=== PATIENT | male | born 1995 | race African-American/Black ===

== ENCOUNTER 2016-06-04 23:26 | Emergency (ER) | payer OTHER ==
[2016-06-05] MEDS ORDERED: NORCO, ANEXSIA 5/325MG TABLET (HYDROcodone/ACETAMINOPHEN) As Ordered ONE (01:03)
[2016-06-05] MEDS ORDERED: BACTRIM 160MG/800MG DS TAB As Ordered ONE (01:04)
--- NOTE | 2016-06-05 01:12 | EDDOCDS ---
Nurse's Notes [facility] Name: Yancy Ferrer Age: 20 yrs Sex: Male : 1995 Arrival Date: 06/04/2016 Time: 23:26 Bed Triage 2 Private MD: Troy Howard Diagnosis: Cutaneous abscess of buttock-left medial Presentation: 06/04 23:42 Presenting complaint: Patient states: Cyst in cleft of left buttocks, has been present lf1 for about one month. Pt. reports pain is 8/10. Presenting complaint: Patient states: Reports he has had this in the past on his right and has required drainage. Adult Sepsis Screening: The patient does not have new or worsening altered mentation. Patient's respiratory rate is less than 22. Systolic blood pressure is greater than 100. Patient has a qSOFA score of 0- Negative Sepsis Screen. Suicide/Homicide risk assessment- the patient denies having any suicidal and/or homicidal ideations and does not present with any other emotional, behavioral or mental health complaints. 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 Transition of care: patient was not received from another setting of care. 23:42 Acuity: RANI Level 3 lf1 23:42 Method Of Arrival: Walkin/Carried/Asstd lf1 Triage Assessment: 23:44 General: Appears in no apparent distress, comfortable, Behavior is cooperative. Pain: lf1 Location: gluteal cleft Pain currently is 8 out of 10 on a pain scale. Quality of pain is described as pressure. HIV screening NA for this visit Offered previously. Neurological: Level of Consciousness is awake, alert, Oriented to person, place, time. Cardiovascular: No deficits noted. Respiratory: Respiratory effort is even, unlabored. GI: Denies nausea, vomiting. : No deficits noted. Derm: Skin is normal, Parent/caregiver reports the patient having cyst to buttocks - unable to visualize in triage area. Injury Description: No known injury. Historical: - Allergies: No known drug Allergies; - Home Meds: 1. Claritin 10 mg Oral TbER 1 tab once daily - PMHx: Seasonal Allergies; - PSHx: does not remember what surgeries he has had; - Social history: Smoking status: Patient uses tobacco products, current every day smoker. No barriers to communication noted, The patient speaks fluent Bangladeshi, Speaks appropriately for age, Preferred Language: Bangladeshi. - Family history: Not pertinent. - : The pt / caregiver states he / she is not on anticoagulants. Home medication list is obtained from the patient. - Exposure Risk Screening:: None identified. Screenin/02 01:05 Screening information is obtained from the patient. Fall risk: No risks identified. lf1 Assistance ADL's: requires no assistance with activities of daily living. Abuse/DV Screen: The patient / caregiver reports he/she is: not in a situation that causes fear, pain or injury. Nutritional screening: No deficits noted. Advance Directives: Currently, there is no health care proxy. home support is adequate. Assessment: 01:05 Adult Sepsis Screening: The patient does not have new or worsening altered mentation. lf1 Patient's respiratory rate is less than 22. Systolic blood pressure is greater than 100. Patient has a qSOFA score of 0- Negative Sepsis Screen. General: Appears in no apparent distress, comfortable, Behavior is cooperative. Pain: Location: gluteal cleft Pain currently is 8 out of 10 on a pain scale. Neurological: Level of Consciousness is awake, alert, Oriented to person, place, time. EENT: No deficits noted. Cardiovascular: Chest pain is denied. Respiratory: Respiratory effort is even, unlabored. GI: Denies nausea, vomiting. Derm: Def to provider. Vital Signs: 06/04 23:29 BP 137 / 63; Pulse 108; Resp 18 S; Temp 99.5(O); Pulse Ox 100% on R/A; Weight 56.7 kg gr2 (R); Height 5 ft. 4 in. (162.56 cm) (R); Pain 5/10; 06/05 01:05 BP 126 / 88; Pulse 89; Resp 18; Temp 98.9(O); Pulse Ox 98% on R/A; Pain 8/10; lf1 06/04 23:29 Body Mass Index 21.46 (56.70 kg, 162.56 cm) gr2 Vitals: 06/04 23:29 Log In Time: June 04, 2016 at 23:29. gr2 ED Course: 23:28 Patient visited by Mao Reynoso. gr2 23:28 Patient moved to Waiting gr2 23:29 Troy Howard is Private Physician. gr2 23:30 Patient visited by Mao Reynoso. gr2 23:30 Patient moved to Pre RCE gr2 23:44 Triage Initiated lf1 0202 00:27 Patient moved to Triage 2 lf1 00:42 Lee Andrea PA is PHCP. mo1 00:42 Boris Stevens DO is Attending Physician. mo1 00:42 Patient visited by Lee Andrea PA. mo1 00:42 Troy Howard is Referral Physician. mo1 00:51 [facility] Payment Agreement was scanned into [employer] and attached to record. pm4 01:05 The patient / caregiver is instructed regarding the plan of care and ED course. lf1 01:05 No IV's were initiated during this patient's visit. No procedures done that require lf1 assistance. Administered Medications: 01:11 Drug: Trimethoprim-Sulfamethoxazole 1 tabs [sulfamethoxazole 800 mg-trimethoprim 160 mg lf1 tablet (1 tabs)] Route: PO; 01:11 Follow up: Response: Pt left department before re-evaluation is appropriate lf1 01:11 Drug: HYDROcodone-acetaminophen 1 tabs [hydrocodone 5 mg-acetaminophen 325 mg tablet (1 lf1 tabs)] Route: PO; 01:11 Follow up: Response: Confirmed pt not driving.; Pt left department before re-evaluation lf1 is appropriate Order Results: There are currently no results for this order. Outcome: 00:43 Discharge ordered by Provider. mo1 01:05 Discharge Assessment: Patient awake, alert and oriented x 3. No cognitive and/or lf1 functional deficits noted. Patient verbalized understanding of disposition instructions. Patient awake and alert. Oriented to person, place and time. Patient verbalized understanding of disposition instructions. patient administered narcotics - yes. Pt provided with safe discharge. The following High Risk Discharge criteria are identified: None. Discharged to home ambulatory. Condition: unchanged. Discharge instructions given to patient, Instructed on discharge instructions, follow up and referral plans. medication usage, Demonstrated understanding of instructions, medications, Pt was receptive of discharge instructions/ teaching. Prescriptions given X 2. No special radiology studies were completed. Property :Personal belongings accompany Pt. 01:11 Patient left the ED. lf1 Signatures: Danay Cesar RN RN lf1 Mao Reynoso gr2 Lee Andrea PA PA mo1 Crescencio Johnson, Reg Reg pm4 MTDD
--- NOTE | 2016-06-05 01:12 | EDDOCDS ---
Physician Documentation [facility] Name: Yancy Ferrer Age: 20 yrs Sex: Male : 1995 Arrival Date: 06/04/2016 Time: 23:26 Bed Triage 2 Private MD: Troy Howard Disposition: 06/05/16 00:43 Discharged to Home/Self Care. Impression: Cutaneous abscess of buttock - left medial . - Condition is Stable. - Discharge Instructions: Abscess, Incision and Drainage. - Prescriptions for [place] 5- 325 mg Oral Tablet - take 1 tablet by ORAL route every 6 hours As needed MDD: 4 tabs; 10 tablet. Bactrim DS 800- 160 mg Oral Tablet - take 1 tablet by ORAL route every 12 hours for 10 days; 20 tablet. - Medication Reconciliation, Local Pharmacy Hours form. - Follow up: Troy Howard; When: Call to arrange an appointment; Reason: Recheck today's complaints, Continuance of care. - Problem is an ongoing problem. - Symptoms are unchanged. Historical: - Allergies: No known drug Allergies; - Home Meds: 1. Claritin 10 mg Oral TbER 1 tab once daily - PMHx: Seasonal Allergies; - PSHx: does not remember what surgeries he has had; - Social history: Smoking status: Patient uses tobacco products, current every day smoker. No barriers to communication noted, The patient speaks fluent Greek, Speaks appropriately for age, Preferred Language: Greek. - Family history: Not pertinent. - : The pt / caregiver states he / she is not on anticoagulants. Home medication list is obtained from the patient. - Exposure Risk Screening:: None identified. Vital Signs: 06/04 23:29 BP 137 / 63; Pulse 108; Resp 18 S; Temp 99.5(O); Pulse Ox 100% on R/A; Weight 56.7 kg / gr2 125 lbs (R); Height 5 ft. 4 in. (162.56 cm) (R); Pain 5/10; 06/05 01:05 BP 126 / 88; Pulse 89; Resp 18; Temp 98.9(O); Pulse Ox 98% on R/A; Pain 8/10; lf1 06/04 23:29 Body Mass Index 21.46 (56.70 kg, 162.56 cm) gr2 MDM: 00:42 Trimethoprim-Sulfamethoxazole 160 mg-800 mg (DS) 1 tabs PO once ordered. mo1 00:42 HYDROcodone-acetaminophen 5 mg-325 mg 1 tabs PO once ordered. mo1 00:51 Financial registration complete. pm4 00:51 [facility] Payment Agreement was scanned into [employer] and attached to record. pm4 Administered Medications: 01:11 Drug: Trimethoprim-Sulfamethoxazole 1 tabs [sulfamethoxazole 800 mg-trimethoprim 160 mg lf1 tablet (1 tabs)] Route: PO; 01:11 Follow up: Response: Pt left department before re-evaluation is appropriate lf1 01:11 Drug: HYDROcodone-acetaminophen 1 tabs [hydrocodone 5 mg-acetaminophen 325 mg tablet (1 lf1 tabs)] Route: PO; 01:11 Follow up: Response: Confirmed pt not driving.; Pt left department before re-evaluation lf1 is appropriate Signatures: Danay Cesar RN RN lf1 Lee Andrea PA PA mo1 Crescencio Johnson, Reg Reg pm4 The chart was reviewed and I authenticate all verbal orders and agree with the evaluation and treatment provided.Attachments: 00:51 [facility] Payment Agreement pm4 MTDD
--- NOTE | 2016-06-07 02:12 | EDDOCDS ---
Physician Documentation [facility] Name: Yancy Ferrer Age: 20 yrs Sex: Male : 1995 Arrival Date: 06/04/2016 Time: 23:26 Bed Triage 2 Private MD: Troy Howard Disposition: 06/05/16 00:43 Discharged to Home/Self Care. Impression: Cutaneous abscess of buttock - left medial . - Condition is Stable. - Discharge Instructions: Abscess, Incision and Drainage. - Prescriptions for [place] 5- 325 mg Oral Tablet - take 1 tablet by ORAL route every 6 hours As needed MDD: 4 tabs; 10 tablet. Bactrim DS 800- 160 mg Oral Tablet - take 1 tablet by ORAL route every 12 hours for 10 days; 20 tablet. - Medication Reconciliation, Local Pharmacy Hours form. - Follow up: Troy Howard; When: Call to arrange an appointment; Reason: Recheck today's complaints, Continuance of care. - Problem is an ongoing problem. - Symptoms are unchanged. Historical: - Allergies: No known drug Allergies; - Home Meds: 1. Claritin 10 mg Oral TbER 1 tab once daily - PMHx: Seasonal Allergies; - PSHx: does not remember what surgeries he has had; - Social history: Smoking status: Patient uses tobacco products, current every day smoker. No barriers to communication noted, The patient speaks fluent Samoan, Speaks appropriately for age, Preferred Language: Samoan. - Family history: Not pertinent. - : The pt / caregiver states he / she is not on anticoagulants. Home medication list is obtained from the patient. - Exposure Risk Screening:: None identified. Vital Signs: 06/04 23:29 BP 137 / 63; Pulse 108; Resp 18 S; Temp 99.5(O); Pulse Ox 100% on R/A; Weight 56.7 kg / gr2 125 lbs (R); Height 5 ft. 4 in. (162.56 cm) (R); Pain 5/10; 06/05 01:05 BP 126 / 88; Pulse 89; Resp 18; Temp 98.9(O); Pulse Ox 98% on R/A; Pain 8/10; lf1 06/04 23:29 Body Mass Index 21.46 (56.70 kg, 162.56 cm) gr2 MDM: 00:42 Trimethoprim-Sulfamethoxazole 160 mg-800 mg (DS) 1 tabs PO once ordered. mo1 00:42 HYDROcodone-acetaminophen 5 mg-325 mg 1 tabs PO once ordered. mo1 00:51 Financial registration complete. pm4 00:51 [facility] Payment Agreement was scanned into [employer] and attached to record. pm4 12:41 T-Sheet-- Draft Copy was scanned into [employer] and attached to record. gb Administered Medications: 01:11 Drug: Trimethoprim-Sulfamethoxazole 1 tabs [sulfamethoxazole 800 mg-trimethoprim 160 mg lf1 tablet (1 tabs)] Route: PO; 01:11 Follow up: Response: Pt left department before re-evaluation is appropriate lf1 01:11 Drug: HYDROcodone-acetaminophen 1 tabs [hydrocodone 5 mg-acetaminophen 325 mg tablet (1 lf1 tabs)] Route: PO; 01:11 Follow up: Response: Confirmed pt not driving.; Pt left department before re-evaluation lf1 is appropriate Signatures: Elsy Retana, Reg Reg gb Danay Cesar,RN RN lf1 Lee Andrea PA PA mo1 Crescencio Johnson, Reg Reg pm4 The chart was reviewed and I authenticate all verbal orders and agree with the evaluation and treatment provided.Attachments: 00:51 [facility] Payment Agreement pm4 12:41 T-Sheet-- Draft Copy gb Chart Complete MTDD
--- NOTE | 2016-06-07 02:12 | EDDOCDS ---
Physician Documentation [facility] Name: Yancy Ferrer Age: 20 yrs Sex: Male : 1995 Arrival Date: 06/04/2016 Time: 23:26 Bed Triage 2 Private MD: Troy Howard Disposition: 06/05/16 00:43 Discharged to Home/Self Care. Impression: Cutaneous abscess of buttock - left medial . - Condition is Stable. - Discharge Instructions: Abscess, Incision and Drainage. - Prescriptions for [place] 5- 325 mg Oral Tablet - take 1 tablet by ORAL route every 6 hours As needed MDD: 4 tabs; 10 tablet. Bactrim DS 800- 160 mg Oral Tablet - take 1 tablet by ORAL route every 12 hours for 10 days; 20 tablet. - Medication Reconciliation, Local Pharmacy Hours form. - Follow up: Troy Howard; When: Call to arrange an appointment; Reason: Recheck today's complaints, Continuance of care. - Problem is an ongoing problem. - Symptoms are unchanged. Historical: - Allergies: No known drug Allergies; - Home Meds: 1. Claritin 10 mg Oral TbER 1 tab once daily - PMHx: Seasonal Allergies; - PSHx: does not remember what surgeries he has had; - Social history: Smoking status: Patient uses tobacco products, current every day smoker. No barriers to communication noted, The patient speaks fluent Mexican, Speaks appropriately for age, Preferred Language: Mexican. - Family history: Not pertinent. - : The pt / caregiver states he / she is not on anticoagulants. Home medication list is obtained from the patient. - Exposure Risk Screening:: None identified. Vital Signs: 06/04 23:29 BP 137 / 63; Pulse 108; Resp 18 S; Temp 99.5(O); Pulse Ox 100% on R/A; Weight 56.7 kg / gr2 125 lbs (R); Height 5 ft. 4 in. (162.56 cm) (R); Pain 5/10; 06/05 01:05 BP 126 / 88; Pulse 89; Resp 18; Temp 98.9(O); Pulse Ox 98% on R/A; Pain 8/10; lf1 06/04 23:29 Body Mass Index 21.46 (56.70 kg, 162.56 cm) gr2 MDM: 00:42 Trimethoprim-Sulfamethoxazole 160 mg-800 mg (DS) 1 tabs PO once ordered. mo1 00:42 HYDROcodone-acetaminophen 5 mg-325 mg 1 tabs PO once ordered. mo1 00:51 Financial registration complete. pm4 00:51 [facility] Payment Agreement was scanned into [employer] and attached to record. pm4 12:41 T-Sheet-- Draft Copy was scanned into [employer] and attached to record. gb Administered Medications: 01:11 Drug: Trimethoprim-Sulfamethoxazole 1 tabs [sulfamethoxazole 800 mg-trimethoprim 160 mg lf1 tablet (1 tabs)] Route: PO; 01:11 Follow up: Response: Pt left department before re-evaluation is appropriate lf1 01:11 Drug: HYDROcodone-acetaminophen 1 tabs [hydrocodone 5 mg-acetaminophen 325 mg tablet (1 lf1 tabs)] Route: PO; 01:11 Follow up: Response: Confirmed pt not driving.; Pt left department before re-evaluation lf1 is appropriate Signatures: Elsy Retana, Reg Reg gb Danay Cesar,RN RN lf1 Lee Andrea PA PA mo1 Crescencio Johnson, Reg Reg pm4 The chart was reviewed and I authenticate all verbal orders and agree with the evaluation and treatment provided.Attachments: 00:51 [facility] Payment Agreement pm4 12:41 T-Sheet-- Draft Copy gb Chart Complete MTDD
--- NOTE | 2016-06-07 02:12 | EDDOCDS ---
Nurse's Notes [facility] Name: Yancy Ferrer Age: 20 yrs Sex: Male : 1995 Arrival Date: 06/04/2016 Time: 23:26 Bed Triage 2 Private MD: Troy Howard Diagnosis: Cutaneous abscess of buttock-left medial Presentation: 06/04 23:42 Presenting complaint: Patient states: Cyst in cleft of left buttocks, has been present lf1 for about one month. Pt. reports pain is 8/10. Presenting complaint: Patient states: Reports he has had this in the past on his right and has required drainage. Adult Sepsis Screening: The patient does not have new or worsening altered mentation. Patient's respiratory rate is less than 22. Systolic blood pressure is greater than 100. Patient has a qSOFA score of 0- Negative Sepsis Screen. Suicide/Homicide risk assessment- the patient denies having any suicidal and/or homicidal ideations and does not present with any other emotional, behavioral or mental health complaints. Status: Patient is not a customer service teller or dependent. Transition of care: patient was not received from another setting of care. 23:42 Acuity: RANI Level 3 lf1 23:42 Method Of Arrival: Walkin/Carried/Asstd lf1 Triage Assessment: 23:44 General: Appears in no apparent distress, comfortable, Behavior is cooperative. Pain: lf1 Location: gluteal cleft Pain currently is 8 out of 10 on a pain scale. Quality of pain is described as pressure. HIV screening NA for this visit Offered previously. Neurological: Level of Consciousness is awake, alert, Oriented to person, place, time. Cardiovascular: No deficits noted. Respiratory: Respiratory effort is even, unlabored. GI: Denies nausea, vomiting. : No deficits noted. Derm: Skin is normal, Parent/caregiver reports the patient having cyst to buttocks - unable to visualize in triage area. Injury Description: No known injury. Historical: - Allergies: No known drug Allergies; - Home Meds: 1. Claritin 10 mg Oral TbER 1 tab once daily - PMHx: Seasonal Allergies; - PSHx: does not remember what surgeries he has had; - Social history: Smoking status: Patient uses tobacco products, current every day smoker. No barriers to communication noted, The patient speaks fluent Wallisian, Speaks appropriately for age, Preferred Language: Wallisian. - Family history: Not pertinent. - : The pt / caregiver states he / she is not on anticoagulants. Home medication list is obtained from the patient. - Exposure Risk Screening:: None identified. Screenin/02 01:05 Screening information is obtained from the patient. Fall risk: No risks identified. lf1 Assistance ADL's: requires no assistance with activities of daily living. Abuse/DV Screen: The patient / caregiver reports he/she is: not in a situation that causes fear, pain or injury. Nutritional screening: No deficits noted. Advance Directives: Currently, there is no health care proxy. home support is adequate. Assessment: 01:05 Adult Sepsis Screening: The patient does not have new or worsening altered mentation. lf1 Patient's respiratory rate is less than 22. Systolic blood pressure is greater than 100. Patient has a qSOFA score of 0- Negative Sepsis Screen. General: Appears in no apparent distress, comfortable, Behavior is cooperative. Pain: Location: gluteal cleft Pain currently is 8 out of 10 on a pain scale. Neurological: Level of Consciousness is awake, alert, Oriented to person, place, time. EENT: No deficits noted. Cardiovascular: Chest pain is denied. Respiratory: Respiratory effort is even, unlabored. GI: Denies nausea, vomiting. Derm: Def to provider. Vital Signs: 06/04 23:29 BP 137 / 63; Pulse 108; Resp 18 S; Temp 99.5(O); Pulse Ox 100% on R/A; Weight 56.7 kg gr2 (R); Height 5 ft. 4 in. (162.56 cm) (R); Pain 5/10; 06/05 01:05 BP 126 / 88; Pulse 89; Resp 18; Temp 98.9(O); Pulse Ox 98% on R/A; Pain 8/10; lf1 06/04 23:29 Body Mass Index 21.46 (56.70 kg, 162.56 cm) gr2 Vitals: 06/04 23:29 Log In Time: June 04, 2016 at 23:29. gr2 ED Course: 23:28 Patient visited by Mao Reynoso. gr2 23:28 Patient moved to Waiting gr2 23:29 Troy Howard is Private Physician. gr2 23:30 Patient visited by Mao Reynoso. gr2 23:30 Patient moved to Pre RCE gr2 23:44 Triage Initiated lf1 02 00:27 Patient moved to Triage 2 lf1 00:42 Lee Andrea PA is PHCP. mo1 00:42 Boris Stevens DO is Attending Physician. mo1 00:42 Patient visited by Lee Andrea PA. mo1 00:42 Troy Howard is Referral Physician. mo1 00:51 [facility] [place] Payment Agreement was scanned into [email or web address] and attached to record. pm4 01:05 The patient / caregiver is instructed regarding the plan of care and ED course. lf1 01:05 No IV's were initiated during this patient's visit. No procedures done that require lf1 assistance. 12:41 T-Sheet-- Draft Copy was scanned into [email or web address] and attached to record. gb Administered Medications: 01:11 Drug: Trimethoprim-Sulfamethoxazole 1 tabs [sulfamethoxazole 800 mg-trimethoprim 160 mg lf1 tablet (1 tabs)] Route: PO; 01:11 Follow up: Response: Pt left department before re-evaluation is appropriate lf1 01:11 Drug: HYDROcodone-acetaminophen 1 tabs [hydrocodone 5 mg-acetaminophen 325 mg tablet (1 lf1 tabs)] Route: PO; 01:11 Follow up: Response: Confirmed pt not driving.; Pt left department before re-evaluation lf1 is appropriate Order Results: There are currently no results for this order. Outcome: 00:43 Discharge ordered by Provider. mo1 01:05 Discharge Assessment: Patient awake, alert and oriented x 3. No cognitive and/or lf1 functional deficits noted. Patient verbalized understanding of disposition instructions. Patient awake and alert. Oriented to person, place and time. Patient verbalized understanding of disposition instructions. patient administered narcotics - yes. Pt provided with safe discharge. The following High Risk Discharge criteria are identified: None. Discharged to home ambulatory. Condition: unchanged. Discharge instructions given to patient, Instructed on discharge instructions, follow up and referral plans. medication usage, Demonstrated understanding of instructions, medications, Pt was receptive of discharge instructions/ teaching. Prescriptions given X 2. No special radiology studies were completed. Property :Personal belongings accompany Pt. 01:11 Patient left the ED. lf1 Signatures: Elsy Retana Reg Reg gb Danay Cesar,RN RN lf1 Mao Reynoso gr2 Lee Andrea PA PA mo1 Crescencio Johnson, Reg Reg pm4 Chart Complete MTDD
== END 2016-06-05 01:11 | disposition home or self-care (01) ==
LOC: M ED 23:26
DX: L02.31 Cutaneous abscess of buttock (principal); J30.9 Allergic rhinitis, unspecified; F17.210 Nicotine dependence, cigarettes, uncomplicated; Z79.899 Other long term (current) drug therapy

== ENCOUNTER 2016-06-06 16:04 | Emergency (ER) | payer OTHER ==
[2016-06-06] MEDS ORDERED: LIDOCAINE 2% MDV 20 ML VIAL As Ordered ONE (16:35)
--- NOTE | 2016-06-06 17:09 | EDDOCDS ---
Nurse's Notes [facility] Name: Yancy Ferrer Age: 20 yrs Sex: Male : 1995 Arrival Date: 06/06/2016 Time: 16:04 Bed TR7 Private MD: Troy Howard Diagnosis: Cutaneous abscess, furuncle and carbuncle of buttock Presentation: 06/06 16:07 Presenting complaint: Patient states: that he has a cyst growing on his R buttock area. ms18 Pt reports that he was here approx 2 days ago and was told that it wasn't ready to be drained. Adult Sepsis Screening: The patient does not have new or worsening altered mentation. Patient's respiratory rate is less than 22. Systolic blood pressure is greater than 100. Patient has a qSOFA score of 0- Negative Sepsis Screen. Suicide/Homicide risk assessment- the patient denies having any suicidal and/or homicidal ideations and does not present with any other emotional, behavioral or mental health complaints. 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 Transition of care: patient was not received from another setting of care. 16:07 Acuity: RANI Level 4 ms18 16:07 Method Of Arrival: Walkin/Carried/Asstd ms18 Triage Assessment: 16:09 General: Appears in no apparent distress, uncomfortable, Behavior is appropriate for ms18 age, cooperative. Pain: Location: buttocks Pain currently is 10 out of 10 on a pain scale. HIV screening NA for this visit Offered previously. Neurological: No deficits noted. Respiratory: No deficits noted. Derm: Skin is pink, warm & dry. Historical: - Allergies: no known allergies; - Home Meds: 1. Claritin 10 mg Oral TbER 1 tab once daily - PMHx: Seasonal Allergies; - PSHx: none; - Social history: Smoking status: Patient uses tobacco products, current every day smoker. No barriers to communication noted, The patient speaks fluent Estonian. - Family history: Not pertinent. - : The pt / caregiver states he / she is not on anticoagulants. Home medication list is obtained from the patient. - Exposure Risk Screening:: None identified. Screenin:06 Screening information is obtained from the patient. Fall risk: No risks identified. ttb Assistance ADL's: requires no assistance with activities of daily living. Abuse/DV Screen: The patient / caregiver reports he/she is: not in a situation that causes fear, pain or injury. Nutritional screening: No deficits noted. Advance Directives: Currently, there is no health care proxy. home support is adequate. Assessment: 17:06 General: Appears in no apparent distress, well nourished, well groomed, Behavior is ttb appropriate for age, cooperative, pleasant. Neurological: Level of Consciousness is awake, alert. Respiratory: No deficits noted. Derm: Skin is normal, left buttock cyst. Vital Signs: 16:06 BP 123 / 66; Pulse 103; Resp 18; Temp 97.3(O); Pulse Ox 100% on R/A; Weight 56.7 kg ct3 (R); Height 5 ft. 4 in. (162.56 cm) (R); Pain 10/10; 16:06 Body Mass Index 21.46 (56.70 kg, 162.56 cm) ct3 Vitals: 16:06 Log In Time: June 06, 2016 at 16:03. ct3 ED Course: 15:50 Assist provider with I & D: of an abscess on buttock cyst Performed by Eduardo GARCIA Patient tolerated well. 16:05 Patient visited by Darlyn Chavez PCA. ct3 16:05 Patient moved to Waiting ct3 16:06 Troy Howard is Private Physician. ct3 16:07 Patient moved to Pre RCE ct3 16:09 Triage Initiated ms18 16:10 Patient moved to Triage 2 ms18 16:29 [facility] Steele [facility]. btw 16:29 Torito Tamayo MD is Attending Physician. btw 16:29 Patient visited by Eduardo Steele PA. btw 16:53 Troy Howard is Referral Physician. btw 17:04 Patient moved to TR7 jb5 17:06 The patient / caregiver is instructed regarding the plan of care and ED course. Patient ttb has correct armband on for positive identification. 17:06 No IV's were initiated during this patient's visit. ttb 17:08 [facility] Payment Agreement was scanned into [employer] and attached to record. jp5 17:08 Abscess Culture & GS - All Others Sent. ttb 17:08 Wound culture sent to lab. ttb Administered Medications: 16:35 Drug: Lidocaine 10 ml [lidocaine 20 mg/mL (2 %) injection solution (10 mL)] {Note: by ttb PA.} Route: Infiltration; Order Results: There are currently no results for this order. Outcome: 16:53 Discharge ordered by Provider. btw 17:08 Discharge Assessment: Patient awake, alert and oriented x 3. No cognitive and/or ttb functional deficits noted. Patient verbalized understanding of disposition instructions. Patient awake and alert. patient administered narcotics - no. 17:08 The following High Risk Discharge criteria are identified: None. Discharged to home ttb ambulatory. Condition: good Condition: stable Condition: improved. Discharge instructions given to patient, Instructed on discharge instructions, follow up and referral plans. medication usage, Use of warm compresses to the affected area, wound care, Demonstrated understanding of instructions, medications, wound care, warm compresses Pt was receptive of discharge instructions/ teaching. No special radiology studies were completed. Property :Personal belongings accompany Pt. 17:08 Patient left the ED. ttb Signatures: Hoa Burk, METAL COATER METAL COATER jb5 Eduardo Steele PA PA btw Darlyn Chavez, METAL COATER METAL COATER ct3 Liliana White, ESTRELLITA RN ttb Ananya Ferrer RN RN ms18 Brandon Warner jp5 MTDD
--- NOTE | 2016-06-06 17:09 | EDDOCDS ---
Physician Documentation [facility] Name: Yancy Ferrer Age: 20 yrs Sex: Male : 1995 Arrival Date: 06/06/2016 Time: 16:04 Bed TR7 Private MD: Troy Howard Disposition: 06/06/16 16:53 Discharged to Home/Self Care. Impression: Cutaneous abscess, furuncle and carbuncle of buttock. - Condition is Stable. - Discharge Instructions: Abscess, [id number], Incision and Drainage of a Pilonidal Cyst. - Medication Reconciliation, Local Pharmacy Hours form. - Follow up: Troy Howard; When: 2 - 3 days; Reason: Wound/Symptom Recheck, Further diagnostic work-up, Recheck today's complaints, Continuance of care. - Problem is new. - Symptoms have improved. Historical: - Allergies: no known allergies; - Home Meds: 1. Claritin 10 mg Oral TbER 1 tab once daily - PMHx: Seasonal Allergies; - PSHx: none; - Social history: Smoking status: Patient uses tobacco products, current every day smoker. No barriers to communication noted, The patient speaks fluent Danish. - Family history: Not pertinent. - : The pt / caregiver states he / she is not on anticoagulants. Home medication list is obtained from the patient. - Exposure Risk Screening:: None identified. Vital Signs: 06/06 16:06 BP 123 / 66; Pulse 103; Resp 18; Temp 97.3(O); Pulse Ox 100% on R/A; Weight 56.7 kg / ct3 125 lbs (R); Height 5 ft. 4 in. (162.56 cm) (R); Pain 10/10; 16:06 Body Mass Index 21.46 (56.70 kg, 162.56 cm) ct3 Procedures: 16:49 I & D: Incision and drainage was performed for an abscess of the gluteal cleft and left btw gluteus abhay Prepped with Betadine, Anesthetized with 4 ml's 2% Lidocaine. Incised with #11 blade. Drained large amount purulent fluid. Cultures obtained. Abscess cavity explored. the patient tolerated the procedure well. MDM: 16:33 Lidocaine 20 mg/mL (2 %) 10 ml Infiltration once; to bedside ordered. btw 17:07 Financial registration complete. zo 17:08 Abscess Culture & GS - All Others Ordered. EDMS 17:08 [facility] Payment Agreement was scanned into [employer] and attached to record. jp5 Administered Medications: 16:35 Drug: Lidocaine 10 ml [lidocaine 20 mg/mL (2 %) injection solution (10 mL)] {Note: by ttb PA.} Route: Infiltration; Signatures: Dispatcher [employer] EDMS Michelle Felix Brandon, PA PA btw Liliana White, RN RN ttb Ananya FerrerRN RN ms18 Brandon Warner jp5 The chart was reviewed and I authenticate all verbal orders and agree with the evaluation and treatment provided.Attachments: 17:08 [facility] Payment Agreement jp5 MTDD
--- NOTE | 2016-06-08 18:09 | EDDOCDS ---
Nurse's Notes [facility] Name: Yancy Ferrer Age: 20 yrs Sex: Male : 1995 Arrival Date: 06/06/2016 Time: 16:04 Bed TR7 Private MD: Troy Howard Diagnosis: Cutaneous abscess, furuncle and carbuncle of buttock Presentation: 06/06 16:07 Presenting complaint: Patient states: that he has a cyst growing on his R buttock area. ms18 Pt reports that he was here approx 2 days ago and was told that it wasn't ready to be drained. Adult Sepsis Screening: The patient does not have new or worsening altered mentation. Patient's respiratory rate is less than 22. Systolic blood pressure is greater than 100. Patient has a qSOFA score of 0- Negative Sepsis Screen. Suicide/Homicide risk assessment- the patient denies having any suicidal and/or homicidal ideations and does not present with any other emotional, behavioral or mental health complaints. Status: Patient is not a environmental services assistant or dependent. Transition of care: patient was not received from another setting of care. 16:07 Acuity: RANI Level 4 ms18 16:07 Method Of Arrival: Walkin/Carried/Asstd ms18 Triage Assessment: 16:09 General: Appears in no apparent distress, uncomfortable, Behavior is appropriate for ms18 age, cooperative. Pain: Location: buttocks Pain currently is 10 out of 10 on a pain scale. HIV screening NA for this visit Offered previously. Neurological: No deficits noted. Respiratory: No deficits noted. Derm: Skin is pink, warm & dry. Historical: - Allergies: no known allergies; - Home Meds: 1. Claritin 10 mg Oral TbER 1 tab once daily - PMHx: Seasonal Allergies; - PSHx: none; - Social history: Smoking status: Patient uses tobacco products, current every day smoker. No barriers to communication noted, The patient speaks fluent Mohawk. - Family history: Not pertinent. - : The pt / caregiver states he / she is not on anticoagulants. Home medication list is obtained from the patient. - Exposure Risk Screening:: None identified. Screenin:06 Screening information is obtained from the patient. Fall risk: No risks identified. ttb Assistance ADL's: requires no assistance with activities of daily living. Abuse/DV Screen: The patient / caregiver reports he/she is: not in a situation that causes fear, pain or injury. Nutritional screening: No deficits noted. Advance Directives: Currently, there is no health care proxy. home support is adequate. Assessment: 17:06 General: Appears in no apparent distress, well nourished, well groomed, Behavior is ttb appropriate for age, cooperative, pleasant. Neurological: Level of Consciousness is awake, alert. Respiratory: No deficits noted. Derm: Skin is normal, left buttock cyst. Vital Signs: 16:06 BP 123 / 66; Pulse 103; Resp 18; Temp 97.3(O); Pulse Ox 100% on R/A; Weight 56.7 kg ct3 (R); Height 5 ft. 4 in. (162.56 cm) (R); Pain 10/10; 16:06 Body Mass Index 21.46 (56.70 kg, 162.56 cm) ct3 Vitals: 16:06 Log In Time: June 06, 2016 at 16:03. ct3 ED Course: 15:50 Assist provider with I & D: of an abscess on buttock cyst Performed by Eduardo GARCIA Patient tolerated well. 16:05 Patient visited by Darlyn Chavez PCA. ct3 16:05 Patient moved to Waiting ct3 16:06 Troy Howard is Private Physician. ct3 16:07 Patient moved to Pre RCE ct3 16:09 Triage Initiated ms18 16:10 Patient moved to Triage 2 ms18 16:29 Eduardo Steele [facility] is [facility]. btw 16:29 Torito Tamayo MD is Attending Physician. btw 16:29 Patient visited by Eduardo Steele PA. btw 16:53 Troy Howard is Referral Physician. btw 17:04 Patient moved to TR7 jb5 17:06 The patient / caregiver is instructed regarding the plan of care and ED course. Patient ttb has correct armband on for positive identification. 17:06 No IV's were initiated during this patient's visit. ttb 17:08 [facility] [place] [facility] [place] Agreement was scanned into [employer] and attached to record. jp5 17:08 Abscess Culture & GS - All Others Sent. ttb 17:08 Wound culture sent to lab. ttb 06/07 10:27 T-Sheet-- Draft Copy was scanned into [employer] and attached to record. mm15 Administered Medications: 06/06 16:35 Drug: Lidocaine 10 ml [lidocaine 20 mg/mL (2 %) injection solution (10 mL)] {Note: by ttb PA.} Route: Infiltration; Order Results: Lab Order: Abscess Culture & GS - All Others; SPEC'M 06/06/16 17:08 Test: GRAM STAIN; Value: GRAM STAIN RESULT; Status: F Test: GRAM STAIN; Value: MANY WBCS; Status: F Test: GRAM STAIN; Value: MANY GRAM POSITIVE COCCI IN CLUSTERS; Status: F Outcome: 16:53 Discharge ordered by Provider. btw 17:08 Discharge Assessment: Patient awake, alert and oriented x 3. No cognitive and/or ttb functional deficits noted. Patient verbalized understanding of disposition instructions. Patient awake and alert. patient administered narcotics - no. 17:08 The following High Risk Discharge criteria are identified: None. Discharged to home ttb ambulatory. Condition: good Condition: stable Condition: improved. Discharge instructions given to patient, Instructed on discharge instructions, follow up and referral plans. medication usage, Use of warm compresses to the affected area, wound care, Demonstrated understanding of instructions, medications, wound care, warm compresses Pt was receptive of discharge instructions/ teaching. No special radiology studies were completed. Property :Personal belongings accompany Pt. 17:08 Patient left the ED. ttb Signatures: Hoa Burk, TERMITE CONTROL TECHNICIAN TERMITE CONTROL TECHNICIAN jb5 Eduardo Steele PA PA btw Darlyn Chavez, TERMITE CONTROL TECHNICIAN TERMITE CONTROL TECHNICIAN ct3 Liliana White, ESTRELLITA RN ttb Thaddeus Phipps mm15 Ananya Ferrer RN RN ms18 Brandon Warner jp5 Chart Complete MTDD
--- NOTE | 2016-06-08 18:09 | EDDOCDS ---
Physician Documentation [facility] Name: Yancy Ferrer Age: 20 yrs Sex: Male : 1995 Arrival Date: 06/06/2016 Time: 16:04 Bed TR7 Private MD: Troy Howard Disposition: 06/06/16 16:53 Discharged to Home/Self Care. Impression: Cutaneous abscess, furuncle and carbuncle of buttock. - Condition is Stable. - Discharge Instructions: Abscess, [id number], Incision and Drainage of a Pilonidal Cyst. - Medication Reconciliation, Local Pharmacy Hours form. - Follow up: Troy Howard; When: 2 - 3 days; Reason: Wound/Symptom Recheck, Further diagnostic work-up, Recheck today's complaints, Continuance of care. - Problem is new. - Symptoms have improved. Historical: - Allergies: no known allergies; - Home Meds: 1. Claritin 10 mg Oral TbER 1 tab once daily - PMHx: Seasonal Allergies; - PSHx: none; - Social history: Smoking status: Patient uses tobacco products, current every day smoker. No barriers to communication noted, The patient speaks fluent Turkmen. - Family history: Not pertinent. - : The pt / caregiver states he / she is not on anticoagulants. Home medication list is obtained from the patient. - Exposure Risk Screening:: None identified. Vital Signs: 06/06 16:06 BP 123 / 66; Pulse 103; Resp 18; Temp 97.3(O); Pulse Ox 100% on R/A; Weight 56.7 kg / ct3 125 lbs (R); Height 5 ft. 4 in. (162.56 cm) (R); Pain 10/10; 16:06 Body Mass Index 21.46 (56.70 kg, 162.56 cm) ct3 Procedures: 16:49 I & D: Incision and drainage was performed for an abscess of the gluteal cleft and left btw gluteus abhay Prepped with Betadine, Anesthetized with 4 ml's 2% Lidocaine. Incised with #11 blade. Drained large amount purulent fluid. Cultures obtained. Abscess cavity explored. the patient tolerated the procedure well. MDM: 16:33 Lidocaine 20 mg/mL (2 %) 10 ml Infiltration once; to bedside ordered. btw 17:07 Financial registration complete. zo 17:08 Abscess Culture & GS - All Others Ordered. EDMS 17:08 [facility] [place] was scanned into [employer] and attached to record. jp5 06/07 10:27 T-Sheet-- Draft Copy was scanned into [employer] and attached to record. mm15 Administered Medications: 06/06 16:35 Drug: Lidocaine 10 ml [lidocaine 20 mg/mL (2 %) injection solution (10 mL)] {Note: by ttb PA.} Route: Infiltration; Signatures: Dispatcher [employer] EDMS Michelle Felix Brandon, PA PA btw Liliana White RN RN ttb Thaddeus Phipps mm15 Ananya Ferrer,ESTRELLITA RN ms18 Brandon Warner jp5 The chart was reviewed and I authenticate all verbal orders and agree with the evaluation and treatment provided.Attachments: 17:08 [facility] Payment Agreement jp5 06/07 10:27 T-Sheet-- Draft Copy mm15 Chart Complete MTDD
--- NOTE | 2016-06-08 18:09 | EDDOCDS ---
Physician Documentation [facility] Name: Yancy Ferrer Age: 20 yrs Sex: Male : 1995 Arrival Date: 06/06/2016 Time: 16:04 Bed TR7 Private MD: Troy Howard Disposition: 06/06/16 16:53 Discharged to Home/Self Care. Impression: Cutaneous abscess, furuncle and carbuncle of buttock. - Condition is Stable. - Discharge Instructions: Abscess, [id number], Incision and Drainage of a Pilonidal Cyst. - Medication Reconciliation, Local Pharmacy Hours form. - Follow up: Troy Howard; When: 2 - 3 days; Reason: Wound/Symptom Recheck, Further diagnostic work-up, Recheck today's complaints, Continuance of care. - Problem is new. - Symptoms have improved. Historical: - Allergies: no known allergies; - Home Meds: 1. Claritin 10 mg Oral TbER 1 tab once daily - PMHx: Seasonal Allergies; - PSHx: none; - Social history: Smoking status: Patient uses tobacco products, current every day smoker. No barriers to communication noted, The patient speaks fluent Serbian. - Family history: Not pertinent. - : The pt / caregiver states he / she is not on anticoagulants. Home medication list is obtained from the patient. - Exposure Risk Screening:: None identified. Vital Signs: 06/06 16:06 BP 123 / 66; Pulse 103; Resp 18; Temp 97.3(O); Pulse Ox 100% on R/A; Weight 56.7 kg / ct3 125 lbs (R); Height 5 ft. 4 in. (162.56 cm) (R); Pain 10/10; 16:06 Body Mass Index 21.46 (56.70 kg, 162.56 cm) ct3 Procedures: 16:49 I & D: Incision and drainage was performed for an abscess of the gluteal cleft and left btw gluteus abhay Prepped with Betadine, Anesthetized with 4 ml's 2% Lidocaine. Incised with #11 blade. Drained large amount purulent fluid. Cultures obtained. Abscess cavity explored. the patient tolerated the procedure well. MDM: 16:33 Lidocaine 20 mg/mL (2 %) 10 ml Infiltration once; to bedside ordered. btw 17:07 Financial registration complete. zo 17:08 Abscess Culture & GS - All Others Ordered. EDMS 17:08 [facility] [place] Payment Agreement was scanned into [employer] and attached to record. jp5 06/07 10:27 T-Sheet-- Draft Copy was scanned into [employer] and attached to record. mm15 Administered Medications: 06/06 16:35 Drug: Lidocaine 10 ml [lidocaine 20 mg/mL (2 %) injection solution (10 mL)] {Note: by ttb PA.} Route: Infiltration; Signatures: Dispatcher [employer] EDMS Michelle Felix Brandon, PA PA btw Liliana White RN RN ttb Thaddeus Phipps mm15 Ananya Ferrer,ESTRELLITA RN ms18 Brandon Warner jp5 The chart was reviewed and I authenticate all verbal orders and agree with the evaluation and treatment provided.Attachments: 17:08 [facility] Payment Agreement jp5 06/07 10:27 T-Sheet-- Draft Copy mm15 Chart Complete MTDD
== END 2016-06-06 17:08 | disposition home or self-care (01) ==
LOC: M ED 16:04
DX: L02.31 Cutaneous abscess of buttock (principal); J30.9 Allergic rhinitis, unspecified; Z79.899 Other long term (current) drug therapy; F17.210 Nicotine dependence, cigarettes, uncomplicated

== ENCOUNTER 2016-07-27 13:19 | Emergency (ER) | payer OTHER ==
[~2016-07-27] VITALS: Ht 170.2 cm; Wt 56.7 kg
[2016-07-27] MEDS ORDERED: ACETAMINOPHEN 325 MG TAB PO ONE (15:15)
[2016-07-27] MEDS ORDERED: ONDANSETRON 4 MG ORAL DISINTEGRATING TAB (S0181) PO ONE (15:15)
[2016-07-27] MEDS ORDERED: AUGM875T27 PO (15:54)
[2016-07-27] MEDS ORDERED: CLAR1TAB2 PO (15:56)
[2016-07-27] MEDS ORDERED: ZITHTAB PO (15:56)
[2016-07-27] MEDS ORDERED: IBUP80TA PO (15:56)
[2016-07-27] MEDS ORDERED: MUCI600T34 PO (15:56)
[2016-07-27] MEDS ORDERED: AZITHROMYCIN 250 MG TAB PO ONE (16:00)
[2016-07-27 16:10] VITALS: BP 132/67
== END 2016-07-27 16:11 | disposition home or self-care (01) ==
LOC: M ED 14:47
DX: H66.93 Otitis media, unspecified, bilateral (principal); J01.90 Acute sinusitis, unspecified; R05 Cough; F17.200 Nicotine dependence, unspecified, uncomplicated

== ENCOUNTER 2016-08-30 14:08 | Emergency (ER) | payer OTHER ==
[~2016-08-30] VITALS: Ht 162.6 cm; Wt 56.7 kg
[~2016-08-30 14:08] MED LIST: AUGM875T27 PO; CLAR1TAB2 PO; IBUP80TA PO; MUCI600T34 PO; ZITHTAB PO
[2016-08-30 14:09] VITALS: BP 137/79
[2016-08-30] MEDS ORDERED: BENA25CA4 PO (14:33)
[2016-08-30] MEDS ORDERED: PRED20TA PO (14:33)
[2016-08-30] MEDS: diphenhydrAMINE 25 MG CAP PO ONE (14:35)
[2016-08-30] MEDS: predniSONE 20 MG TAB PO ONE (14:36)
== END 2016-08-30 14:39 | disposition home or self-care (01) ==
LOC: M ED 14:32
DX: L23.9 Allergic contact dermatitis, unspecified cause (principal); F17.210 Nicotine dependence, cigarettes, uncomplicated; J30.9 Allergic rhinitis, unspecified; Z79.899 Other long term (current) drug therapy

== ENCOUNTER 2016-10-20 16:12 | Emergency (ER) | payer OTHER ==
[~2016-10-20] VITALS: Ht 162.6 cm; Wt 69.4 kg
[~2016-10-20 16:12] MED LIST changes: -AUGM875T27 PO; +AUGM875T28 PO; +BENA25CA4 PO; -MUCI600T34 PO; +MUCI600T37 PO; +PRED20TA PO
[2016-10-20] MEDS ORDERED: cefTRIAXone SOD 250 MG VIAL (J0696) IM ONE (17:45)
[2016-10-20] MEDS ORDERED: AZITHROMYCIN 250 MG TAB PO ONE (17:45)
[2016-10-20] MEDS ORDERED: LIDOCAINE 1% MDV 20ML VIAL As Ordered ONE (17:50)
[2016-10-20 18:21] VITALS: BP 140/81
== END 2016-10-20 18:28 | disposition home or self-care (01) ==
LOC: M ED 17:17
DX: R36.9 Urethral discharge, unspecified (principal); R68.83 Chills (without fever); J02.8 Acute pharyngitis due to other specified organisms; J30.2 Other seasonal allergic rhinitis

== ENCOUNTER 2017-02-10 17:39 | Emergency (ER) | payer OTHER ==
[~2017-02-10] VITALS: Ht 165.1 cm; Wt 72.1 kg
[2017-02-10] MEDS ORDERED: cefTRIAXone SOD 250 MG VIAL (J0696) IM ONE (19:45)
[2017-02-10] MEDS ORDERED: AZITHROMYCIN 250 MG TAB PO ONE (19:45)
[2017-02-10 20:25] VITALS: BP 119/79
== END 2017-02-10 20:25 | disposition home or self-care (01) ==
LOC: M ED 17:39
DX: Z20.2 Contact with and (suspected) exposure to infections with a predominantly sexual mode of transmission (principal); R30.0 Dysuria; J30.2 Other seasonal allergic rhinitis
CPT/HCPCS: 81001; 87086; 87491; 87591; 96372; 99283; J0696

== ENCOUNTER 2017-04-22 23:04 | Emergency (ER) | payer OTHER ==
[~2017-04-22] VITALS: Ht 177.8 cm; Wt 65.9 kg
[2017-04-22 23:05] VITALS: BP 129/84
[2017-04-23] MEDS ORDERED: cefTRIAXone SOD 250 MG VIAL (J0696) IM ONE (01:00)
[2017-04-23] MEDS ORDERED: AZITHROMYCIN 250 MG TAB PO ONE (01:00)
== END 2017-04-23 01:38 | disposition left against medical advice (07) ==
LOC: M ED 23:04
DX: Z20.2 Contact with and (suspected) exposure to infections with a predominantly sexual mode of transmission (principal); Z53.21 Procedure and treatment not carried out due to patient leaving prior to being seen by health care provider

== ENCOUNTER 2017-05-16 11:23 | Emergency (ER) | payer OTHER ==
[2017-05-16] MEDS: LIDOCAINE 2% W/EPIN INJ 20ML **PRES FREE INJ (12:12)
== END 2017-05-16 12:51 | disposition home or self-care (01) ==
LOC: M ED 11:23
DX: L02.31 Cutaneous abscess of buttock (principal); J30.2 Other seasonal allergic rhinitis; F17.200 Nicotine dependence, unspecified, uncomplicated
CPT/HCPCS: 10060

== ENCOUNTER 2017-05-17 14:51 | Emergency (ER) | payer OTHER ==
[2017-05-17] MEDS ORDERED: CEFTAROLINE FOSAMIL 600 MG in APPROPRIATE DILUENT 1 EA IV (17:45)
[2017-05-17 18:44] LABS: BASO % 0.2 % (0.0-1.0); EOS # 0.2 10^3/uL (0.0-0.50); EOS % 0.9 % (0.0-3.0); HEMOGLOBIN 14.3 g/dl (14.0-18.0); IMMATURE GRANULOCYTE # 0.1 10^3/uL (0-0); IMMATURE GRANULOCYTE % 0.5 % (0-0); LYMPH # 1.9 10^3/uL (1.5-6.5); LYMPH % 10.1 % (24.0-44.0); MEAN CORPUSCULAR VOLUME 82.2 fl (80.0-96.0); MONO # 1.2 10^3/uL (0.0-0.8); MONO % 6.5 % (0.0-5.0); NEUTROPHILS # 15.2 10^3/uL (1.8-7.7); NEUTROPHILS % 81.8 % (36.0-66.0); PLATELET COUNT, AUTOMATED 265 10^3/uL (150-450); RED BLOOD COUNT 5.11 10^6/uL (4.30-6.10); WHITE BLOOD COUNT 18.6 10^3/uL (4.0-10.0)
[2017-05-17] MEDS: MORPHINE 4 MG/ML 1ML SYRINGE IV (18:54)
[2017-05-17] MEDS: CEFTAROLINE FOSAMIL 600 MG in D5W 50 ML IV (18:55)
[2017-05-17] MEDS ORDERED: LIDOCAINE 1% MDV 20ML VIAL SC (20:00)
[2017-05-17] MEDS: NORCO 5/325MG TABLET (BULK FOR ED) PO (21:05)
== END 2017-05-17 21:13 | disposition home or self-care (01) ==
LOC: M ED 14:51
DX: L02.31 Cutaneous abscess of buttock (principal); J30.2 Other seasonal allergic rhinitis; F17.200 Nicotine dependence, unspecified, uncomplicated; Z79.2 Long term (current) use of antibiotics
CPT/HCPCS: J0712

== ENCOUNTER 2017-07-09 15:41 | Emergency (ER) | payer OTHER ==
[2017-07-09 16:21] LABS: KETONE, URINE AUTO RFX NEGATIVE (NEGATIVE); LEUKOCYTE ESTERASE UR AUTO RFX NEGATIVE (NEGATIVE); MUCUS, URINE RFX SMALL (NEGATIVE); NITRITE, URINE AUTO RFX NEGATIVE (NEGATIVE); RBC, URINE AUTO RFX 1 /HPF (0-3); SPECIFIC GRAVITY UR AUTO RFX 1.018 (1.002-1.035); SQUAM EPITHELIAL CELL UR AURFX 0 /HPF (0-6); WBC, URINE AUTO RFX 1 /HPF (0-3)
[2017-07-09] MEDS: cefTRIAXone SOD 250 MG VIAL (J0696) IM (16:27)
[2017-07-09] MEDS: AZITHROMYCIN 250 MG TAB PO (16:27)
[2017-07-09 17:47] LABS: CHLAMYDIA DNA AMPLIFICATION NEGATIVE (NEGATIVE); GC DNA AMPLIFICATION NEGATIVE (NEGATIVE)
[2017-07-10 11:16] LABS: HEPATITIS B SURFACE ANTIBODY NEGATIVE (POSITIVE)
[2017-07-10 11:23] LABS: HEPATITIS B SURFACE ANTIGEN NEGATIVE (NEGATIVE)
[2017-07-10 11:52] LABS: HIV 1&2 SCREEN CENTAUR NEGATIVE (NEGATIVE)
[2017-07-10 11:52] LABS: HEPATITIS C VIRUS ABY INDEX 0.1 INDEX (<0.8)
== END 2017-07-09 17:04 | disposition home or self-care (01) ==
LOC: M ED 15:41
DX: Z20.2 Contact with and (suspected) exposure to infections with a predominantly sexual mode of transmission (principal)
CPT/HCPCS: J0696

== ENCOUNTER 2017-12-01 02:41 | Emergency (ER) | payer OTHER ==
[2017-12-01] MEDS: TETANUS/DIPHTHERIA TOX ADSORB ADULT 0.5ML SYR/VIAL (90714) IM (04:52)
== END 2017-12-01 05:01 | disposition home or self-care (01) ==
LOC: M ED 02:41
DX: S61.216A Laceration without foreign body of right little finger without damage to nail, initial encounter (principal); W26.9XXA Contact with unspecified sharp object(s), initial encounter; Y92.89 Other specified places as the place of occurrence of the external cause
CPT/HCPCS: 90714

== ENCOUNTER 2018-12-03 09:30 | Emergency (ER) | payer MEDICAID, OTHER, SELFPAY ==
[~2018-12-03] VITALS: Ht 154.9 cm; Wt 75.0 kg
[2018-12-03 09:30] VITALS: BP 118/69
[~2018-12-03 09:30] MED LIST changes: +BACT800T5 PO; +IBUP-1022 PO
[2018-12-03] MEDS ORDERED: KETOROLAC TROMETHAMINE 10 MG TAB PO ONE (10:15)
[2018-12-03] MEDS ORDERED: KETO10TAB PO (10:16)
--- NOTE | 2018-12-03 22:26 | ECGEPIP ---
[facility] - ED Test Date: 2018-12-03 Pat Name: NAYELY LACEY Department: Room: - Gender: Male Stockkeeper: : 1995 Requested By: Julianne Joya Order Number: [id number] Reading MD: Torito Tamayo Measurements Intervals [place] Rate: 77 P: 60 FL: 171 QRS: 78 QRSD: 97 T: 35 QT: 344 QTc: 390 Interpretive Statements SINUS RHYTHM WITH SINUS ARRHYTHMIA INCOMPLETE RIGHT BUNDLE BRANCH BLOCK NO PRIORS FOR COMPARISON Electronically Signed on 12-03-2018 22:26:33 EDT by Torito Tamayo
== END 2018-12-03 10:28 | disposition home or self-care (01) ==
LOC: M ED 09:30
DX: M75.22 Bicipital tendinitis, left shoulder (principal); Y93.B3 Activity, free weights; Y92.39 Other specified sports and athletic area as the place of occurrence of the external cause

== ENCOUNTER 2018-12-07 14:15 | Emergency (ER) | payer MEDICAID, SELFPAY ==
[~2018-12-07] VITALS: Ht 157.5 cm; Wt 75.0 kg
[~2018-12-07 14:15] MED LIST changes: +KETO10TAB PO
[2018-12-07 14:16] VITALS: BP 123/64
--- NOTE | 2018-12-07 15:01 | REP ---
RIGHT ANKLE, FOUR VIEWS: HISTORY: Injury. There is no acute fracture or dislocation. The joint space is normal in appearance. Soft tissue swelling is present. IMPRESSION: There is no acute fracture or dislocation. Electronically Signed by Miguel Munguia MD 12/07/2018 03:07 P
== END 2018-12-07 15:15 | disposition home or self-care (01) ==
LOC: M ED 14:15
DX: S93.401A Sprain of unspecified ligament of right ankle, initial encounter (principal); X50.9XXA Other and unspecified overexertion or strenuous movements or postures, initial encounter; Y92.018 Other place in single-family (private) house as the place of occurrence of the external cause; F17.210 Nicotine dependence, cigarettes, uncomplicated

== ENCOUNTER 2019-03-10 12:45 | Emergency (ER) | payer MEDICAID ==
[~2019-03-10] VITALS: Ht 162.6 cm; Wt 78.4 kg
--- NOTE | 2019-03-10 13:31 | REP ---
Right knee series: Five views. History: [place] a right knee pop. Comparison right knee radiographs are from June 01, 2013. Findings: Five views right knee demonstrate normal bones, joints, and soft tissues. No fracture, or subluxation is seen. No evidence of joint effusion Impression: Negative right knee radiographs. Electronically Signed by Alvin Wolf MD 03/10/2019 01:22 P
[2019-03-10] MEDS ORDERED: LORA-674 PO (13:53)
[2019-03-10 14:26] VITALS: BP 115/74
== END 2019-03-10 14:36 | disposition home or self-care (01) ==
LOC: M ED 12:45
DX: S80.01XA Contusion of right knee, initial encounter (principal); W01.0XXA Fall on same level from slipping, tripping and stumbling without subsequent striking against object, initial encounter; Y93.67 Activity, basketball; Z79.899 Other long term (current) drug therapy

== ENCOUNTER 2019-03-15 09:26 | Emergency (ER) | payer MEDICAID, OTHER ==
[~2019-03-15] VITALS: Ht 170.2 cm; Wt 78.5 kg
[2019-03-15 09:26] VITALS: BP 129/76
[~2019-03-15 09:26] MED LIST changes: +LORA-674 PO
[2019-03-15] MEDS ORDERED: CLAR10CA3 PO (09:36)
[2019-03-15] MEDS ORDERED: BACT800T5 PO (09:50)
[2019-03-15] MEDS ORDERED: BACTRIM 160MG/800MG DS TAB PO ONE (10:00)
[2019-03-15] MEDS ORDERED: IBUPROFEN 600 MG TAB PO ONE (10:00)
== END 2019-03-15 10:02 | disposition home or self-care (01) ==
LOC: M ED 09:26
DX: L02.31 Cutaneous abscess of buttock (principal); J30.2 Other seasonal allergic rhinitis; F17.210 Nicotine dependence, cigarettes, uncomplicated; Z79.899 Other long term (current) drug therapy

== ENCOUNTER 2019-03-16 08:31 | Emergency (ER) | payer OTHER ==
[~2019-03-16] VITALS: Ht 170.2 cm; Wt 77.6 kg
[~2019-03-16 08:31] MED LIST changes: +CLAR10CA3 PO
[2019-03-16] MEDS ORDERED: LIDOCAINE W/EPINEPHRINE 1% 20ML VIAL As Ordered ONE (09:33)
[2019-03-16] MEDS ORDERED: LIDOCAINE W/EPINEPHRINE 1% 20ML VIAL SC ONE (09:45)
--- NOTE | 2019-03-16 10:02 | REP ---
Soft-tissue ultrasound left gluteal region. History: Left gluteal pain and swelling. Rule out abscess. Findings: Sonography of the area in question demonstrates a abnormal fluid collection in the subcutaneous fat layer measuring 4.9 x 1.5 x 3.0 centimeters. The fluid is fairly anechoic. Margins are irregular. There is a edematous tissue along the medial edge of the fluid collection. Impression: 4.9 x 3.0 x 1.5 cm subcutaneous fluid collection consistent with abscess or seroma. Electronically Signed by Alvin Wolf MD 03/16/2019 09:53 A
[2019-03-16 10:11] VITALS: BP 127/73
== END 2019-03-16 10:15 | disposition home or self-care (01) ==
LOC: M ED 08:31
DX: L02.31 Cutaneous abscess of buttock (principal); F17.218 Nicotine dependence, cigarettes, with other nicotine-induced disorders

== ENCOUNTER 2019-03-18 12:25 | Emergency (ER) | payer OTHER ==
[~2019-03-18] VITALS: Ht 170.2 cm; Wt 76.2 kg
[2019-03-18 15:30] VITALS: BP 128/72
== END 2019-03-18 15:31 | disposition home or self-care (01) ==
LOC: M ED 12:25
DX: Z48.00 Encounter for change or removal of nonsurgical wound dressing (principal); L02.31 Cutaneous abscess of buttock; F17.210 Nicotine dependence, cigarettes, uncomplicated

== ENCOUNTER 2019-04-26 12:27 | Emergency (ER) | payer OTHER ==
[~2019-04-26] VITALS: Ht 162.6 cm; Wt 78.2 kg
[2019-04-26] MEDS ORDERED: OXYC1TAB23 (12:34)
[2019-04-26] MEDS ORDERED: LIDOCAINE W/EPINEPHRINE 1% 20ML VIAL SC ONE (13:30)
[2019-04-26 13:51] LABS: BASO % 0.3 % (0.0-1.0); EOS # 0.5 10^3/uL (0.0-0.5); EOS % 3.3 % (0.0-3.0); HEMATOCRIT 43.1 % (42.0-52.0); LYMPH % 13.3 % (24.0-44.0); MEAN CORPUSCULAR HEMOGLOBIN 27.7 pg (27.0-33.0); MEAN CORPUSCULAR HGB CONC 32.5 g/dl (32.0-36.5); MEAN CORPUSCULAR VOLUME 85.2 fl (80.0-96.0); MONO % 6.3 % (0.0-5.0); NEUTROPHILS # 11.5 10^3/uL (1.5-8.5); NEUTROPHILS % 76.4 % (36.0-66.0); PLATELET COUNT, AUTOMATED 307 10^3/uL (150-450); RED BLOOD COUNT 5.06 10^6/uL (4.30-6.10); WHITE BLOOD COUNT 15.1 10^3/uL (4.0-10.0)
[2019-04-26] MEDS ORDERED: BACTRIM 160MG/800MG DS TAB PO ONE (14:30)
[2019-04-26] MEDS ORDERED: BACT800T5 PO (14:31)
[2019-04-26 14:40] VITALS: BP 130/88
== END 2019-04-26 14:42 | disposition home or self-care (01) ==
LOC: M ED 12:27
DX: L02.31 Cutaneous abscess of buttock (principal); F17.200 Nicotine dependence, unspecified, uncomplicated

== ENCOUNTER 2019-04-30 15:36 | Emergency (ER) | payer OTHER ==
[~2019-04-30] VITALS: Ht 162.6 cm; Wt 79.4 kg
[~2019-04-30 15:36] MED LIST changes: +OXYC1TAB23
[2019-04-30 15:37] VITALS: BP 130/67
[2019-04-30] MEDS ORDERED: CLAR5TAB11 PO (16:17)
== END 2019-04-30 16:40 | disposition home or self-care (01) ==
LOC: M ED 15:36
DX: Z48.817 Encounter for surgical aftercare following surgery on the skin and subcutaneous tissue (principal); F17.210 Nicotine dependence, cigarettes, uncomplicated; J30.2 Other seasonal allergic rhinitis; Z79.891 Long term (current) use of opiate analgesic; Z79.899 Other long term (current) drug therapy

== ENCOUNTER 2019-08-23 02:42 | Emergency (ER) | payer OTHER ==
[~2019-08-23] VITALS: Ht 165.1 cm; Wt 81.0 kg
[~2019-08-23 02:42] MED LIST changes: +CLAR5TAB11 PO
[2019-08-23] MEDS ORDERED: ACET-683 PO (02:49)
[2019-08-23] MEDS ORDERED: LIDOCAINE W/EPINEPHRINE 1% 20ML VIAL SC ONE (03:45)
[2019-08-23] MEDS ORDERED: KEFL500C17 PO (04:39)
[2019-08-23] MEDS ORDERED: ceFAZolin 1GM VIAL (J0690 PER 500MG) IM ONE (04:45)
[2019-08-23 04:56] VITALS: BP 122/70
== END 2019-08-23 04:57 | disposition home or self-care (01) ==
LOC: M ED 02:42
DX: L03.317 Cellulitis of buttock (principal); J30.2 Other seasonal allergic rhinitis
CPT/HCPCS: 10060; 96372; 99283; J0690

== ENCOUNTER 2019-08-25 22:31 | Inpatient (IN) | payer OTHER ==
[~2019-08-25] VITALS: Ht 165.1 cm; Wt 81.9 kg
[~2019-08-25 22:31] MED LIST changes: +ACET-683 PO; +KEFL500C17 PO
[2019-08-25] MEDS ORDERED: GOOD200C PO (22:35)
[2019-08-25] MEDS ORDERED: MORPHINE 4 MG/ML 1ML VIAL/SYRINGE (J2270) IV ONE (23:00)
[2019-08-25] MEDS ORDERED: NS 1,000 ML IV ONE (23:00)
[2019-08-25] MEDS ORDERED: LIDOCAINE W/EPINEPHRINE 1% 20ML VIAL SC ONE (23:00)
[2019-08-25 23:13] LABS: BASO % 0.2 % (0.0-1.0); EOS # 0.8 10^3/uL (0.0-0.5); EOS % 4.6 % (0.0-3.0); HEMATOCRIT 37.5 % (42.0-52.0); HEMOGLOBIN 12.7 g/dl (13.5-17.5); LYMPH # 2.3 10^3/uL (1.5-5.0); LYMPH % 13.3 % (24.0-44.0); MEAN CORPUSCULAR HEMOGLOBIN 27.5 pg (27.0-33.0); MEAN CORPUSCULAR HGB CONC 33.9 g/dl (32.0-36.5); MEAN CORPUSCULAR VOLUME 81.2 fl (80.0-96.0); MONO # 1.8 10^3/uL (0.0-0.8); MONO % 10.4 % (0.0-5.0); NEUTROPHILS % 70.3 % (36.0-66.0); PLATELET COUNT, AUTOMATED 240 10^3/uL (150-450); RED BLOOD COUNT 4.62 10^6/uL (4.30-6.10)
[2019-08-25 23:37] LABS: ERYTHROCYTE SEDIMENTATION RATE 63 mm/hr (0-15)
[2019-08-26] MEDS ORDERED: PIPERACILLIN/TAZOBACTAM SOD 3.375 GM in D5W MINI-BAG PLUS 50 ML IV ONE ×2
[2019-08-26] MEDS ORDERED: cefTRIAXone SOD 1 GM in D5W MINI-BAG PLUS 50 ML IV ONE ×2
[2019-08-26] MEDS ORDERED: MORPHINE 4 MG/ML 1ML VIAL/SYRINGE (J2270) IV ONE (00:30)
[2019-08-26] MEDS ORDERED: LORA-674 PO (00:44)
[2019-08-26] MEDS ORDERED: IBUP1TAB7 PO (00:44)
[2019-08-26] MEDS ORDERED: CEPH500C PO (00:44)
[2019-08-26] MEDS ORDERED: MOM 30ML SUSPENSION UDC PO PRN (01:00)
[2019-08-26] MEDS ORDERED: ACETAMINOPHEN TAB 650MG DOSE (2X325MG) PO PRN (01:00)
[2019-08-26] MEDS ORDERED: NORCO, ANEXSIA 5/325MG TABLET (HYDROcodone/ACETAMINOPHEN) PO PRN ×2 (01:15)
--- NOTE | 2019-08-26 01:21 | REPVR ---
PROCEDURE INFORMATION: Exam: US Pelvis Limited, Male Exam date and time: 08/26/2019 1:15 AM Age: 23 years old Clinical indication: Pain; Other: Lt buttock; Additional info: Left gluteal abccess TECHNIQUE: Imaging protocol: Real-time pelvic ultrasound with image documentation. COMPARISON: Pelvis, limited US 03/16/2019 9:30 AM FINDINGS: Complex fluid collection with packing measuring 4.3 x 1.9 x 3.2 cm in the left gluteal region consistent with patient's given history of abscess formation. Moderate soft tissue swelling representing cellulitis. IMPRESSION: Complex fluid collection with packing measuring 4.3 x 1.9 x 3.2 cm in the left gluteal region consistent with patient's given history of abscess formation. Moderate soft tissue swelling representing cellulitis. Electronically signed by: Isa Almanzar On 08/26/2019 01:20:41 AM
[2019-08-26 01:30] VITALS: BP 122/78
[2019-08-26] MEDS: CEFTAROLINE FOSAMIL 600 MG in D5W MINI-BAG PLUS 50 ML IV SCH ×2 (01:55→14:17)
[2019-08-26] MEDS: metroNIDAZOLE 500 MG in IV 1 EA IV SCH ×3 (03:05→19:10)
--- NOTE | 2019-08-26 04:25 | HPEPDOC ---
[facility] Medical History & Physical Date of Admission Aug 26, 2019 Date of Service: Aug 26, 2019 History and Physical CHIEF COMPLAINT: recurrent left gluteal cheek abscess and overlying cellulitis HISTORY OF PRESENT ILLNESS: This is a 23-year-old male presenting for recurrent left gluteal cheek abscess and overlying cellulitis. Patient states this been going on for multiple months and most recent ER evaluation was on the . During this visit, he had an I&D performed which had minimal output and he was discharged with Keflex for 10 days which he states is compliant with. He is returning today for his pain did not improve and has had purulent discharge from the site. He does endorse chills with no fevers, nausea, vomiting, diarrhea or abdominal pain. Patient does endorse in the past hes he does get recurrent boils in his gluteal area near the same location. He denies any other boils or abscesses in other locations. He does endorse being on Bactrim in the past as well. In the ER, He was tachycardia with a fever (100.4), elevated CRP and leukoc ytosis. Zosyn, ceftriaxone, and 1L. Hospital team was called for management of recurrent left gluteal abscess and cellulitis, which failed outpatient therapy. PAST MEDICAL HISTORY: 1. Seasonal allergies HOME MEDICATIONS: Please see below. ALLERGIES: Please see below PAST SURGICAL HISTORY: 1. Hernia repair 2. Right knee surgery SOCIAL HISTORY: Tobacco use: Current every day smoker ETOH: Denies, Illicit drug use: Denies,, CODE STATUS: Full code FAMILY HISTORY: Reviewed and noncontributory. Denies family history of recurrent skin infections or GI history REVIEW OF SYSTEMS: 10 systems reviewed and negative other than HPI PHYSICAL EXAMINATION: VITAL SIGNS: See below GENERAL: Pleasant 23 year old Male, laying prone in bed awake alert oriented speaking in complete sentences in no acute distress unless manipulating left glutal area HEENT: Moist mucous membranes no elevation in CVP CARDIOVASCULAR: Unable to asses because laying prone and uncomfortable during exam RESPIRATORY: Clear to auscultation bilaterally. ABDOMINAL: Unable to assess for patient is lying on stomach BUTTOCKS: Induration 7 x 5 cm opening measuring 1x2cm currently packed with idoform tender to palpation, overlying skin is slightly erythematous and edematous and slight increased warmth. EXTREMITIES: No lower extremity edema NEUROLOGICAL: No gross focal deficits appreciated PSYCHOLOGICAL: Appropriate LABORATORY DATA: See below. MICROBIOLOGY: Please see below. IMAGING: Ultrasound 08/26/2019 Complex fluid collection with packing measuring 4.3 x 1.9 x 3.2 cm in the left gluteal region consistent with patient's given history of abscess formation. Moderate soft tissue swelling representing cellulitis. ASSESSMENT & PLAN: This is a 23-year-old male presenting with recurrent left gluteal cheek abscess and overlying cellulitis. PROBLEMS: 1. Left gluteal cheek abscess with overlying cellulitis - in the ER, elevated CRP leukocytosis tachycardia and fever in the ER -Induration~7 x 5 cm opening measuring ~1x2cm currently packed with idoform tender to palpation -S/P I&D in the ER 3-4 days prior, and currently draining -multiple reoccurrence failed outpatient antibiotics (Keflex and Bactrim) -s/p Zosyn, ceftriaxone, a 1L in the ER -BP adequate, able to tolerate PO, therefore encourage adequate fluid intake and monitor vitals -Due to recurrent abscess on the gluteal cheek and located medially recommend covering for MRSA, gram-negative and anaerobe. -De-escalate based on wound culture, MRSA screening pending -U/S of abscess to assess the extent of the abscess in size. -Pain control: Newell and Tylenol on board 2. Seasonal Allergy -c/w with home loratadine DVT PROPHYLAXIS: Heparin DISPOSITION: Admits Inpatient for 2 midnights Vital Signs Vital Signs Date Time Temp Pulse Resp B/P (MAP) Pulse Ox O2 Delivery O2 Flow Rate FiO2 08/26/19 00:54 98.9 89 18 139/88 (105) 97 Room Air Laboratory Data Labs 24H Laboratory Tests 2 08/25/19 23:03: Immature Granulocyte % (Auto) 1.2, Neutrophils (%) (Auto) 70.3H, Lymphocytes (%) (Auto) 13.3L, Monocytes (%) (Auto) 10.4H, Eosinophils (%) (Auto) 4.6H, Basophils (%) (Auto) 0.2, Neutrophils # (Auto) 12.0H, Lymphocytes # (Auto) 2.3, Monocytes # (Auto) 1.8H, Eosinophils # (Auto) 0.8H, Basophils # (Auto) 0.0, Nucleated Red Blood Cells % (auto) 0.0, Erythrocyte Sedimentation Rate 63H, Lactic Acid Level 1.7, C-Reactive Protein, Quantitative 10.60H 08/25/19 23:07: POC Glucose (Misc Panel) 118H, POC Sodium (Misc Panel) 137, POC Potassium (Misc Panel) 3.5, POC Chloride (Misc Panel) 101, POC Total CO2 (Misc Panel) 22.0L, POC Blood Urea Nitrogen (Misc Panel 10, POC Ionized Calcium (Misc Panel) 4.7, POC Creatinine (Misc Panel) 0.8, POC Hematocrit (Misc Panel) 39.0 CBC/BMP Laboratory Tests 08/25/19 23:03 Microbiology Microbiology 08/25/19 Wound Culture, Received Pending 08/25/19 Blood Culture, Received Pending 08/25/19 Blood Culture, Received Pending Home Medications Scheduled Cephalexin (Cephalexin) 500 Mg Capsule, 500 MG PO Q8H Loratadine (Loratadine) 10 Mg Tablet, 10 MG PO DAILY Scheduled PRN Acetaminophen (Acetaminophen) 500 Mg Tablet, 1,000 MG PO Q8H PRN for PAIN / F EVER Ibuprofen (Ibuprofen) 800 Mg Tablet, 800 MG PO Q8H PRN for PAIN Allergies Coded Allergies: No Known Allergies (Verified , 02/10/17) GME ATTESTATION GME ATTESTATION My faculty preceptor for this patient encounter was physically present during the encounter and was fully available. All aspects of the patient interview, examination, medical decision making process, and medical care plan development were reviewed and approved by the faculty preceptor. The faculty preceptor is aware and concurs with the plan as stated in the body of this note and will attest to such by his/her cosignature. ATTENDING NOTE I, Raven Chacon, have independently examined this patient and performed my own physical exam, as well as reviewed the documentation and edited where necessary. I have discussed in detail with the resident / student the findings and plan of treatment as documented by the resident / student and edited their note. I agree with their findings and treatment plan and have edited their documentation. I will continue to follow the patient during this hospital stay. JOHN GARCIA DO Aug 26, 2019 04:25 RAVEN CHACON MD Aug 27, 2019 04:51
[2019-08-26 06:00] VITALS: BP 108/70
[2019-08-26 08:10] LABS: HEMATOCRIT 36.7 % (42.0-52.0); MEAN CORPUSCULAR HGB CONC 32.7 g/dl (32.0-36.5); MEAN CORPUSCULAR VOLUME 82.7 fl (80.0-96.0); PLATELET COUNT, AUTOMATED 238 10^3/uL (150-450); RED BLOOD COUNT 4.44 10^6/uL (4.30-6.10); WHITE BLOOD COUNT 16.7 10^3/uL (4.0-10.0)
[2019-08-26] MEDS: LORATADINE 10 MG TAB PO SCH (08:22)
[2019-08-26] MEDS: HEPARIN SOD (PORCINE) 5000UNITS/ML VIAL (J1644 PER 1000UNITS) SC SCH ×2 (08:23→20:34)
[2019-08-26 08:37] LABS: BLOOD UREA NITROGEN 8 MG/DL (7-18); CALCIUM LEVEL 8.4 MG/DL (8.5-10.1); CARBON DIOXIDE LEVEL 24 MEQ/L (21-32); CHLORIDE LEVEL 107 MEQ/L (98-107); CREATININE FOR GFR 0.71 MG/DL (0.70-1.30); GLOMERULAR FILTRATION RATE > 60.0 (>60); GLUCOSE, FASTING 87 MG/DL (70-100); MAGNESIUM LEVEL 2.2 MG/DL (1.8-2.4); POTASSIUM SERUM 3.5 MEQ/L (3.5-5.1); SODIUM LEVEL 138 MEQ/L (136-145)
--- NOTE | 2019-08-26 10:19 | IPNPDOC ---
Subjective Date Seen The patient was seen on 08/26/19. Subjective Chief Complaint/HPI Patient seen and examined at bedside this morning. Patient reports that he slept well with no issues. He states he has mild residual pain with incision and drainage happened but says that it is much better than it was yesterday. He denies any fevers, chills, short of breath, chest pain, abdominal pain, nausea, vomiting. Patient has no other complaints at this time. All questions were answered at bedside. Other systems 10 point review of systems was negative except for what is stated above in the subjective Objective Physical Examination General Exam: Positive: Alert, Cooperative, No Acute Distress Eye Exam: Positive: PERRLA, Conjunctiva & lids normal, EOMI; Negative: Sclera icteric ENT Exam: Positive: Atraumatic, Mucous membr. moist/pink, Pharynx Normal Neck Exam: Positive: Supple; Negative: JVD Chest Exam: Positive: Clear to auscultation, Normal air movement Heart Exam: Positive: Rate Normal, Regular Rhythm, Normal S1, Normal S2 Abdomen Exam: Positive: Normal bowel sounds, Soft; Negative: Tenderness, Hepatospenomegaly Male Exam: Positive: Lesions (Effie abscess noted on the patient's left gluteal cheek. Some residual blood noted around wound site. With that appears to be slightly indurated. Wound appears to be packed.) Extremity Exam: Positive: Normal pulses; Negative: Clubbing, Edema Skin Exam: Positive: Nl turgor and temperature Neuro Exam: Positive: Normal Gait, Normal Speech, Strength at 5/5 X4 ext, Normal Tone, Sensation Intact Psych Exam: Positive: Mental status NL, Mood NL Assessment /Plan Assessment 23-year-old male with no significant medical history presents with gluteal abscess and cellulitis. He underwent incision and drainage yesterday night in the ER and wound is packed. Patient still has elevated white count but has been afebrile since going to the floor. He hasn't placed on sertraline and Flagyl and cultures were sent and pending. Plan/VTE VTE Prophylaxis Ordered?: No Plan Gluteal abscess and cellulitis Patient has quit 2 abscess that underwent I&D 2. Wound cultures have been sent and patient is currently on an tabetic therapy. - Continue sertraline and Flagyl for now - Follow-up MRSA screening - Follow up on cultures and sensitivities - Supportive care with pain management and control Anticipate discharge within the next 24-48 hours once cultures come back given patient has failed outpatient antibiotic therapy and initial incision and drainage VS, I&O, 24H, Karane Vital Signs/I&O Vital Signs Date Time Temp Pulse Resp B/P (MAP) Pulse Ox O2 Delivery O2 Flow Rate FiO2 08/26/19 06:12 16 08/26/19 06:00 97.8 74 108/70 (83) 99 Room Air I&O- Last 24 Hours up to 6 AM 08/26/19 06:00 Intake Total 1300 ml Output Total 160 ml Balance 1140 ml Laboratory Data 24H LABS Laboratory Tests 2 08/25/19 23:03: Immature Granulocyte % (Auto) 1.2, Neutrophils (%) (Auto) 70.3H, Lymphocytes (%) (Auto) 13.3L, Monocytes (%) (Auto) 10.4H, Eosinophils (%) (Auto) 4.6H, Basophils (%) (Auto) 0.2, Neutrophils # (Auto) 12.0H, Lymphocytes # (Auto) 2.3, Monocytes # (Auto) 1.8H, Eosinophils # (Auto) 0.8H, Basophils # (Auto) 0.0, Nucleated Red Blood Cells % (auto) 0.0, Erythrocyte Sedimentation Rate 63H, Lactic Acid Level 1.7, C-Reactive Protein, Quantitative 10.60H 08/25/19 23:07: POC Glucose (Misc Panel) 118H, POC Sodium (Misc Panel) 137, POC Potassium (Misc Panel) 3.5, POC Chloride (Misc Panel) 101, POC Total CO2 (Misc Panel) 22.0L, POC Blood Urea Nitrogen (Misc Panel 10, POC Ionized Calcium (Misc Panel) 4.7, POC Creatinine (Misc Panel) 0.8, POC Hematocrit (Misc Panel) 39.0 08/26/19 07:23: Nucleated Red Blood Cells % (auto) 0.0, C-Reactive Protein, Quantitative 10.10H, Anion Gap 7L, Glomerular Filtration Rate > 60.0, Calcium Level 8.4L, Magnesium Level 2.2 CBC/BMP Laboratory Tests 08/25/19 23:03 08/26/19 07:23 Microbiology Microbiology 08/25/19 Wound Culture, Received Pending 08/25/19 Blood Culture, Received Pending 08/25/19 Blood Culture, Received Pending JED POZO MD Aug 26, 2019 10:19
[2019-08-26 14:00] VITALS: BP 110/78
[2019-08-26 22:00] VITALS: BP 120/65
[2019-08-27] MEDS: CEFTAROLINE FOSAMIL 600 MG in D5W MINI-BAG PLUS 50 ML IV SCH ×2 (01:20→13:14)
[2019-08-27] MEDS: metroNIDAZOLE 500 MG in IV 1 EA IV SCH ×3 (02:34→18:06)
[2019-08-27 06:00] VITALS: BP 137/62
[2019-08-27 08:06] LABS: HEMATOCRIT 37.6 % (42.0-52.0); MEAN CORPUSCULAR HEMOGLOBIN 28.2 pg (27.0-33.0); MEAN CORPUSCULAR HGB CONC 34.6 g/dl (32.0-36.5); MEAN CORPUSCULAR VOLUME 81.6 fl (80.0-96.0); PLATELET COUNT, AUTOMATED 270 10^3/uL (150-450); RED BLOOD COUNT 4.61 10^6/uL (4.30-6.10)
[2019-08-27 08:32] LABS: BLOOD UREA NITROGEN 9 MG/DL (7-18); C REACTIVE PROTEIN QUANTITATIV 8.25 MG/DL (0.00-0.30); CARBON DIOXIDE LEVEL 22 MEQ/L (21-32); CHLORIDE LEVEL 107 MEQ/L (98-107); CREATININE FOR GFR 0.79 MG/DL (0.70-1.30); GLOMERULAR FILTRATION RATE > 60.0 (>60); GLUCOSE, FASTING 83 MG/DL (70-100); MAGNESIUM LEVEL 2.3 MG/DL (1.8-2.4); POTASSIUM SERUM 4.1 MEQ/L (3.5-5.1); SODIUM LEVEL 139 MEQ/L (136-145)
[2019-08-27] MEDS: LORATADINE 10 MG TAB PO SCH (08:35)
[2019-08-27] MEDS: HEPARIN SOD (PORCINE) 5000UNITS/ML VIAL (J1644 PER 1000UNITS) SC SCH ×2 (08:36→21:54)
--- NOTE | 2019-08-27 12:27 | IPNPDOC ---
Subjective Date Seen The patient was seen on 08/27/19. Subjective Chief Complaint/HPI Patient seen and examined at bedside this morning. Patient reports that he slept well through the night with no complaints. She denies any recent fevers, chills, shortness of breath, chest pain, abdominal pain, nausea, vomiting. He states that the pain in his buttocks is much improved. Patient is requesting to shower. Patient has no other questions at this time Other systems 10 point review systems is negative except for stated above in the subjective Objective Physical Examination General Exam: Positive: Alert, Cooperative, No Acute Distress Eye Exam: Positive: PERRLA, Conjunctiva & lids normal, EOMI; Negative: Sclera icteric ENT Exam: Positive: Atraumatic, Mucous membr. moist/pink, Pharynx Normal Neck Exam: Positive: Supple; Negative: JVD Chest Exam: Positive: Clear to auscultation, Normal air movement Heart Exam: Positive: Rate Normal, Regular Rhythm, Normal S1, Normal S2 Abdomen Exam: Positive: Normal bowel sounds, Soft; Negative: Tenderness, Hepatospenomegaly Male Exam: Positive: Lesions (Effie abscess noted on the patient's left gluteal cheek. Some residual blood noted around wound site. With that appears to be slightly indurated. Wound appears to be packed.) Extremity Exam: Positive: Normal pulses; Negative: Clubbing, Edema Skin Exam: Positive: Nl turgor and temperature Neuro Exam: Positive: Normal Gait, Normal Speech, Strength at 5/5 X4 ext, Normal Tone, Sensation Intact Psych Exam: Positive: Mental status NL, Mood NL Assessment /Plan Assessment 23-year-old male currently admitted for gluteal abscess. White count is currently defervesced with antibiotic therapy. Wound site looks improved and will need to be repacked today. Wound cultures are also pending at this time. Once cultures returned an organism is known, patient can be stable for discharg e. Plan/VTE VTE Prophylaxis Ordered?: No Plan Diet: Continue Current Activity: Continue Current Diagnostics: Check Labs, Obtain Cultures Anticipated Discharge: Home Gluteal abscess and cellulitis Patient has quit 2 abscess that underwent I&D 2. Wound cultures have been sent and patient is currently on an tabetic therapy. - Continue ceftaroline and Flagyl for now - Follow-up MRSA screening - negative - Follow up on cultures and sensitivities - Supportive care with pain management and control Anticipate discharge within the next 24 hours once cultures come back given patient has failed outpatient antibiotic therapy and initial incision and drainage VS, I&O, 24H, Fishbone Vital Signs/I&O Vital Signs Date Time Temp Pulse Resp B/P (MAP) Pulse Ox O2 Delivery O2 Flow Rate FiO2 08/27/19 06:00 98.1 72 19 137/62 (87) 99 Room Air I&O- Last 24 Hours up to 6 AM 08/27/19 06:00 Intake Total 2290 ml Output Total 1100 ml Balance 1190 ml Laboratory Data 24H LABS Laboratory Tests 2 08/27/19 07:54: Nucleated Red Blood Cells % (auto) 0.0, Anion Gap 10, Glomerular Filtration Rate > 60.0, Calcium Level 9.0, Magnesium Level 2.3, C-Reactive Protein, Quantitative 8.25H CBC/BMP Laboratory Tests 08/27/19 07:54 Microbiology Microbiology 08/25/19 Wound Culture, Received Pending 08/25/19 Blood Culture - Preliminary, Resulted No growth after 24 hours . All specim... 08/25/19 Blood Culture - Preliminary, Resulted No growth after 24 hours . All specim... JED POZO MD Aug 27, 2019 12:27
[2019-08-27 14:00] VITALS: BP 108/69
[2019-08-27] MEDS ORDERED: LIDOCAINE W/EPINEPHRINE 1% 20ML VIAL SC ONE (15:30)
[2019-08-27 22:00] VITALS: BP 113/67
[2019-08-28] MEDS: CEFTAROLINE FOSAMIL 600 MG in D5W MINI-BAG PLUS 50 ML IV SCH (01:19)
[2019-08-28] MEDS: metroNIDAZOLE 500 MG in IV 1 EA IV SCH (02:37)
[2019-08-28 06:00] VITALS: BP 133/76
[2019-08-28 07:50] LABS: HEMATOCRIT 37.1 % (42.0-52.0); HEMOGLOBIN 12.8 g/dl (13.5-17.5); MEAN CORPUSCULAR HEMOGLOBIN 28.1 pg (27.0-33.0); MEAN CORPUSCULAR HGB CONC 34.5 g/dl (32.0-36.5); MEAN CORPUSCULAR VOLUME 81.5 fl (80.0-96.0); PLATELET COUNT, AUTOMATED 286 10^3/uL (150-450); RED BLOOD COUNT 4.55 10^6/uL (4.30-6.10); WHITE BLOOD COUNT 11.8 10^3/uL (4.0-10.0)
[2019-08-28 08:13] LABS: BLOOD UREA NITROGEN 11 MG/DL (7-18); C REACTIVE PROTEIN QUANTITATIV 3.49 MG/DL (0.00-0.30); CALCIUM LEVEL 8.8 MG/DL (8.5-10.1); CARBON DIOXIDE LEVEL 25 MEQ/L (21-32); CHLORIDE LEVEL 106 MEQ/L (98-107); CREATININE FOR GFR 0.83 MG/DL (0.70-1.30); GLOMERULAR FILTRATION RATE > 60.0 (>60); GLUCOSE, FASTING 92 MG/DL (70-100); MAGNESIUM LEVEL 2.2 MG/DL (1.8-2.4); SODIUM LEVEL 140 MEQ/L (136-145)
[2019-08-28] MEDS: LORATADINE 10 MG TAB PO SCH (08:47)
[2019-08-28] MEDS: HEPARIN SOD (PORCINE) 5000UNITS/ML VIAL (J1644 PER 1000UNITS) SC SCH (08:48)
[2019-08-28] MEDS ORDERED: DOXY-350 PO (08:54)
--- NOTE | 2019-08-28 09:01 | DS.PDOC ---
Discharge Summary General Date of Admission Aug 26, 2019 at 00:30 Date of Discharge 08/28/19 Discharge Summary PROCEDURES PERFORMED DURING STAY: Incision and drainage. ADMITTING DIAGNOSES: 1. gluteal abscess and cellulitis. DISCHARGE DIAGNOSES: 1. Gluteal abscess and cellulitis. COMPLICATIONS/CHIEF COMPLAINT: Abcess, Gluteal, Left. HISTORY OF PRESENT ILLNESS: This is a 23-year-old male presenting for recurrent left gluteal cheek abscess and overlying cellulitis. Patient states this been going on for multiple months and most recent ER evaluation was on the . During this visit, he had an I&D performed which had minimal output and he was discharged with Keflex for 10 days which he states is compliant with. He is returning today for his pain did not improve and has had purulent discharge from the site. He does endorse chills with no fevers, nausea, vomiting, diarrhea or abdominal pain. Patient does endorse in the past hes he does get recurrent boils in his gluteal area near the same location. He denies any other boils or abscesses in other locations. He does endorse being on Bactrim in the past as well. In the ER, He was tachycardia with a fever (100.4), elevated CRP and leukocytosis. Zosyn, ceftriaxone, and 1L. Hospital team was called for ma nagement of recurrent left gluteal abscess and cellulitis, which failed outpatient therapy.. HOSPITAL COURSE: Patient was admitted to the medical floor for further evaluation and management. Patient received an incision and drainage in the emergency room and the wound was packed. Cultures have been sent to the lab and were pending. Patient was placed on Cefotan lean and Flagyl for both MRSA and anaerobic coverage. Patient's white count began to defervescence on antibiotic therapy. Wound cultures grew staph epidermidis which was resistant to his initial antibiotic therapy. Wound is repacked on August 26 with iodoform dressing at bedside. Given patient's continued improvement and wound culture results, patient is medically stable for discharge today. Patient to be discharged on d oxycycline 100 mg twice a day for 10 additional days to complete 14 days of antibiotic therapy. Patient has been instructed to follow-up with his PCP within the next 3-5 days and referral has been sent to see a de ionizer operator given his chronic issues with abscesses. DISCHARGE MEDICATIONS: Please see below. ALLERGIES: Please see below. PHYSICAL EXAMINATION ON DISCHARGE: VITAL SIGNS: Please see below. GENERAL: Well-appearing male, looks stated age, no acute distress HEENT: Normocephalic and atraumatic. Mucous membranes are moist NECK: No JVD, no thyromegaly CARDIOVASCULAR EXAMINATION: Regular rate and regular rhythm. No murmurs no rubs no gallops RESPIRATORY EXAMINATION: Clear to auscultation bilaterally ABDOMINAL EXAMINATION: Soft, nontender, nondistended, normal bowel sounds EXTREMITIES: defects or deformities SKIN: Left gluteal abscess noted with packing in place. Area of induration around abscess. Minimal drainage noted. NEUROLOGICAL EXAMINATION: Cranial nerves II through XII are intact PSYCHIATRIC EXAMINATION: Is within normal limits LABORATORY DATA: Please see below. IMAGING: Complex fluid collection with packing measuring 4.3 x 1.9 x 3.2 cm in the left gluteal region consistent with patient's given history of abscess formation. Moderate soft tissue swelling representing cellulitis. PROGNOSIS: Good, patient expected to make full recovery ACTIVITY: Tolerated. DIET: No restrictions DISCHARGE PLAN: Discharge home. Patient to have impact by mother who is a home health aid DISCHARGE INSTRUCTIONS: 1. Please take her antibiotics as described for full course. 2. Please follow up with her PCP within 3-5 days for evaluation of the wound 3. Please follow-up with the de ionizer operator at her earliest convenience for further evaluation of abscess issues. 4. Please repack the wound in 48-72 hours with iodoform dressing ITEMS TO FOLLOWUP ON ON OUTPATIENT: 1. Reevaluation of the wound. DISCHARGE CONDITION: Medically stable for discharge. TIME SPENT ON DISCHARGE: 25 minutes Vital Signs/I&Os Vital Signs Date Time Temp Pulse Resp B/P (MAP) Pulse Ox O2 Delivery O2 Flow Rate FiO2 08/28/19 06:00 97.8 62 16 133/76 (95) 100 Room Air I&O- Last 24 Hours up to 6 AM 08/28/19 05:59 Intake Total 2200 ml Output Total 800 ml Balance 1400 ml Laboratory Data Labs 24H Laboratory Tests 2 08/28/19 07:32: Nucleated Red Blood Cells % (auto) 0.0, Anion Gap 9, Glomerular Filtration Rate > 60.0, Calcium Level 8.8, Magnesium Level 2.2, C-Reactive Protein, Quantitative 3.49H CBC/BMP Laboratory Tests 08/28/19 07:32 Microbiology Microbiology 08/25/19 Wound Culture - Final, Complete Staphylococcus Epidermidis 08/25/19 Blood Culture - Preliminary, Resulted No Growth after 48 hours. All Specime... 08/25/19 Blood Culture - Preliminary, Resulted No Growth after 48 hours. All Specime... Discharge Medications Scheduled Doxycycline Monohydrate (Doxycycline) 100 Mg Capsule, 100 MG PO BID Loratadine (Loratadine) 10 Mg Tablet, 10 MG PO DAILY, (Reported) Scheduled PRN Acetaminophen (Acetaminophen) 500 Mg Tablet, 1,000 MG PO Q8H PRN for PAIN / FEVER, (Reported) Ibuprofen (Ibuprofen) 800 Mg Tablet, 800 MG PO Q8H PRN for PAIN, (Reported) Allergies Coded Allergies: No Known Allergies (Verified , 02/10/17) JED POZO MD Aug 28, 2019 09:01
== END 2019-08-28 11:35 | disposition home or self-care (01) | DRG 383 ==
LOC: M ED 22:31 → M ED INP 08-26 00:30 → ENRESERV 08-26 00:38 → M MS5PR 08-26 01:29
PROVIDERS: ADMIT Internal Medicine; ATTEND Internal Medicine
DX: L02.31 Cutaneous abscess of buttock (principal); F17.200 Nicotine dependence, unspecified, uncomplicated; L03.317 Cellulitis of buttock

== ENCOUNTER 2019-11-26 11:30 | Emergency (ER) | payer OTHER ==
[~2019-11-26 11:30] MED LIST changes: +CEPH500C PO; +DOXY-350 PO; +GOOD200C PO; +IBUP1TAB7 PO
[2019-11-26] MEDS ORDERED: LIDOCAINE 1% MDV 20ML VIAL ONE (11:31)
[2019-11-26] MEDS ORDERED: BACTRIM 160MG/800MG DS TAB ONE (11:31)
[2019-11-26] MEDS ORDERED: LIDOCAINE 1% MDV 20ML VIAL As Ordered ONE (11:58)
[2019-11-26] MEDS ORDERED: BACTRIM 160MG/800MG DS TAB As Ordered ONE (11:59)
== END 2019-11-26 13:20 | disposition home or self-care (01) ==
LOC: M ED 11:30
DX: L02.31 Cutaneous abscess of buttock (principal); Z79.899 Other long term (current) drug therapy

== ENCOUNTER 2019-11-27 12:17 | Emergency (ER) | payer OTHER | END 2019-11-27 12:30 | disposition home or self-care (01) | LOC: M ED 12:17 | DX: Z48.00 Encounter for change or removal of nonsurgical wound dressing (principal); L02.31 Cutaneous abscess of buttock ==

== ENCOUNTER → 2020-11-06 | Outpatient (REF) | payer OTHER | LOC: M SFHCPLAZ 13:03 | PROVIDERS: ATTEND Physician Assistant | DX: L02.31 Cutaneous abscess of buttock (principal) ==

== ENCOUNTER → 2021-01-25 | Outpatient (CLI) | payer OTHER ==
--- NOTE | 2021-01-25 11:07 | REP ---
INDICATION: NASAL POLYPS. COMPARISON: Comparison study March 02, 2016. TECHNIQUE: Helical scanning is acquired and 2 mm axial images re-formatted. Coronal MPR images are generated and reviewed. FINDINGS: Preliminary digital flame cutting machine operator helper radiographs are unremarkable. There is minimal old posttraumatic deformity of the posterolateral wall the left maxillary sinus. The prior study showed fractures of the left maxillary sinus. There is a mucosal retention cyst in the left maxillary sinus today measuring 8 mm. The left maxillary sinus is otherwise clear. The right maxillary sinus is clear. There is an old appearing blowout fracture of the medial wall of the right orbit. This was not present on the February 2016 study. It is nevertheless old in appearance. The ethmoid sinuses are clear. No sphenoid sinus opacification is seen. The frontal sinuses are clear. Mastoid aeration is normal and symmetric. There is a leftward deviation of the anterior nasal septum with a small septal beak. Nasal turbinates soft tissues are unremarkable. No nasal polyp is seen. Ostiomeatal complexes are patent bilaterally. No intraorbital soft tissue abnormality is seen. The visualized intracranial structures are unremarkable. 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 Small mucous retention cyst in the left maxillary sinus. Leftward deviation of the inferior and anterior nasal septum. Otherwise negative <Electronically signed by Chin Wolf > 01/25/21 [id number]
== END ==
LOC: M RAD 10:30
PROVIDERS: ATTEND Otolaryngology
DX: J33.9 Nasal polyp, unspecified (principal)

== ENCOUNTER 2021-04-13 11:24 | Emergency (ER) | payer OTHER ==
[~2021-04-13] VITALS: Ht 162.6 cm; Wt 75.0 kg
[2021-04-13] MEDS ORDERED: BACTDSTA (11:30)
[2021-04-13] MEDS ORDERED: DOXYCYCLINE HYCLATE 100MG TABLET PO ONE (13:20)
[2021-04-13] MEDS ORDERED: LIDOCAINE 1% MDV 20ML VIAL SC ONE (13:20)
[2021-04-13] MEDS ORDERED: ACETAMINOPHEN 500 MG TAB PO ONE (13:30)
[2021-04-13 14:15] VITALS: BP 119/72
[2021-05-22] MEDS ORDERED: CETI10CA2 PO (15:03)
== END 2021-04-13 14:15 | disposition home or self-care (01) ==
LOC: M ED 11:24
DX: L02.31 Cutaneous abscess of buttock (principal)

== ENCOUNTER → 2021-05-30 | Outpatient (CLI) | payer OTHER ==
[~2021-05-30] MED LIST changes: +BACTDSTA; +CETI10CA2 PO
== END ==
LOC: M LABSMTC 09:02
PROVIDERS: ATTEND Anesthesiology
DX: Z01.818 Encounter for other preprocedural examination (principal); Z11.52 Encounter for screening for COVID-19

== ENCOUNTER 2021-06-04 06:17 | Day surgery (SDC) | payer OTHER ==
[~2021-06-04] VITALS: Ht 162.6 cm; Wt 80.2 kg
[~2021-06-04 06:17] MED LIST changes: +LR 1,000 ML IV ONE
[2021-06-04] MEDS ORDERED: ACETAMINOPHEN 1000MG 100ML IV BTL (OFIRMEV) (J0131 PER 10MG) As Ordered ONE (07:13)
[2021-06-04] MEDS ORDERED: propofoL 200 MG/20 ML VIAL As Ordered ONE ×2 (07:13→08:14)
[2021-06-04] MEDS ORDERED: KETOROLAC 60MG 2ML VIAL As Ordered ONE (07:13)
[2021-06-04] MEDS ORDERED: dexameTHASONE 4 MG/ML 1ML VIAL (J1100 PER 1MG) As Ordered ONE (07:13)
[2021-06-04] MEDS ORDERED: MIDAZOLAM INJ 2MG/2ML VIAL (J2250 PER 1MG) As Ordered ONE (07:13)
[2021-06-04] MEDS ORDERED: ONDANSETRON 4MG/2ML VIAL As Ordered ONE (07:13)
[2021-06-04] MEDS ORDERED: HYDROmorphone HCL 2MG/ML 1ML VIAL As Ordered ONE (07:13)
[2021-06-04] MEDS ORDERED: LIDOCAINE 2% 100MG/5ML SDV (FOR ANES.) As Ordered ONE (07:13)
[2021-06-04] MEDS ORDERED: fentaNYL 100 MCG/2 ML INJECTION (J3010) As Ordered ONE (07:13)
[2021-06-04] MEDS ORDERED: ROCURONIUM BROMIDE 50 MG/5 ML VIAL As Ordered ONE (07:13)
[2021-06-04] MEDS ORDERED: BUPIVACAINE HCL 0.25% 30ML VIAL As Ordered ONE (07:38)
[2021-06-04] MEDS ORDERED: LACRILUBE (AKWA TEARS) OPHTH OINT 3.5 GM As Ordered ONE (07:50)
[2021-06-04] MEDS ORDERED: SUGAMMADEX SODIUM 500 MG/5 ML VIAL (BRIDION) As Ordered ONE (08:13)
[2021-06-04] MEDS ORDERED: ONDANSETRON 4MG/2ML VIAL IV PRN (09:30)
[2021-06-04] MEDS ORDERED: fentaNYL 100 MCG/2 ML INJECTION (J3010) IV PRN (09:30)
[2021-06-04] MEDS ORDERED: LR 1,000 ML IV SCH (09:30)
[2021-06-04] MEDS ORDERED: oxyCODONE 5MG TAB PO PRN (09:30)
[2021-06-04] MEDS ORDERED: ACETAMINOPHEN TAB 650MG DOSE (2X325MG) PO PRN (09:30)
[2021-06-04] MEDS ORDERED: NORCO, ANEXSIA 5/325MG TABLET (HYDROcodone/ACETAMINOPHEN) PO PRN (09:35)
[2021-06-04] MEDS ORDERED: IBUPROFEN 600MG TAB PO PRN (09:35)
[2021-06-04 10:32] VITALS: BP 120/76
== END 2021-06-04 10:40 | disposition home or self-care (01) ==
LOC: M SDC 06:17
PROVIDERS: ATTEND Surgery
DX: L72.0 Epidermal cyst (principal); L90.5 Scar conditions and fibrosis of skin; K21.9 Gastro-esophageal reflux disease without esophagitis; F41.9 Anxiety disorder, unspecified; R06.83 Snoring; F17.210 Nicotine dependence, cigarettes, uncomplicated; Z79.899 Other long term (current) drug therapy
CPT/HCPCS: 11406; 88304; J0131; J1100; J1170; J1885; J2250; J2405; J3010

== ENCOUNTER → 2025-01-30 | Outpatient (CLI) | payer OTHER ==
[~2025-01-30] MED LIST changes: +ACET1TAB55 PO; +ARNU1INH3 IN; -DOXY-350 PO; +DOXY-440 PO; +DOXY-441 PO; -GOOD200C PO; -IBUP-1022 PO; +IBUP200C35 PO; +IBUP600T42 PO; +LORA-1041 PO; -LORA-674 PO; -LR 1,000 ML IV ONE; +PROB250C PO; +VENTAER INH
== END ==
LOC: M OUTALCOH 14:32
PROVIDERS: ATTEND Psychiatry & Neurology Psychiatry
DX: F12.20 Cannabis dependence, uncomplicated (principal); F17.200 Nicotine dependence, unspecified, uncomplicated

== ENCOUNTER → 2025-02-02 | Outpatient (CLI) | payer OTHER ==
[2025-02-02 12:47] LABS: CHOLESTEROL LEVEL 177.0 MG/DL (<200); CHOLESTEROL RISK RATIO 4.59 (<5); LDL CHOLESTEROL 91.7 MG/DL (<100); NON-HDL-C 138.5 MG/DL; TRIGLYCERIDES LEVEL 234.0 MG/DL (<150)
[2025-02-02 12:48] LABS: PLATELET COUNT, AUTOMATED 245 10^3/uL (150-450)
[2025-02-02 13:48] LABS: ESTIMATED AVERAGE GLUCOSE 120.0 MG/DL (60-110)
== END ==
LOC: M WUC 09:56
PROVIDERS: ATTEND Nurse Practitioner Family
DX: M25.569 Pain in unspecified knee (principal)

== ENCOUNTER → 2025-03-03 | Outpatient (RCR) | payer MEDICAID, OTHER | LOC: M OUTALCOH 02-06 12:49 | PROVIDERS: ATTEND Psychiatry & Neurology Psychiatry | DX: F12.20 Cannabis dependence, uncomplicated (principal); F17.200 Nicotine dependence, unspecified, uncomplicated | CPT/HCPCS: 99211; G0397 ==

== ENCOUNTER 2025-03-29 10:43 | Outpatient (RCR) | payer MEDICAID ==
[~2025-03-29 10:43] MED LIST changes: -BACTDSTA; +SULF-8
== END 2025-04-02 ==
LOC: M OUTALCOH 10:43
PROVIDERS: ATTEND Psychiatry & Neurology Psychiatry
DX: F12.20 Cannabis dependence, uncomplicated (principal); F17.200 Nicotine dependence, unspecified, uncomplicated

== ENCOUNTER 2025-04-26 09:53 | Outpatient (RCR) | payer MEDICAID | END 2025-05-03 | LOC: M OUTALCOH 09:53 | PROVIDERS: ATTEND Psychiatry & Neurology Psychiatry | DX: F12.20 Cannabis dependence, uncomplicated (principal); F17.200 Nicotine dependence, unspecified, uncomplicated ==